=== PATIENT | female | born 1955 | race Caucasian/White ===

== ENCOUNTER → 2017-12-29 | Outpatient (CLI) | payer OTHER ==
[~2017-12-29] MED LIST: INSDGIPEN SC; NVLGI SC; SUMA6KIT
--- NOTE | 2017-12-29 13:06 | DIAGNOSTIC IMAGING REPORT ---
CHEST 2 VIEWS ROUTINE CLINICAL HISTORY: 62 years-old Female presenting with R05 [id number]. TECHNIQUE: PA and lateral views of the chest were obtained. COMPARISON: 06/16/2016. FINDINGS: Atherosclerosis of the aortic arch. Cardiac silhouette normal in size. Lungs and pleural spaces clear. Degenerative changes of the thoracic spine. Partially visualized anterior cervical fusion hardware. Upper abdomen normal. IMPRESSION: 1. No acute cardiopulmonary disease. Electronically signed by: Dg Allen M.D. 12/29/2017 1:05 PM Dictated Date/Time: 12/29/2017 1:03 PM
== END | disposition home or self-care (01) ==
LOC: C.RAD 12:34
PROVIDERS: ATTEND Physician Assistant Medical
DX: R05 Cough (principal)

== ENCOUNTER → 2017-12-29 | Outpatient (CLI) | payer OTHER ==
[2017-12-29 16:27] LABS: BASO % 0.3 %; BASO ABS # 0.03 K/uL (0-0.2); HEMATOCRIT 37.4 % (37-47); HEMOGLOBIN 12.5 g/dL (12.0-16.0); IG# 0.02 K/uL (0.00-0.02); LYMPH % 31.1 %; LYMPH ABS # 2.97 K/uL (1.2-3.4); MEAN CELL VOLUME 95.9 fL (80-100); MEAN CORPUSCULAR HEMOGLOBIN 32.1 pg (25-34); MEAN CORPUSCULAR HGB CONC 33.4 g/dl (32-36); MEAN PLATELET VOLUME 10.2 fL (7.4-10.4); MONO % 6.7 %; MONO ABS # 0.64 K/uL (0.11-0.59); NEUT % 60.7 %; PLATELET COUNT 258 K/uL (130-400); RED CELL DISTRIBUTION WIDTH CV 13.2 % (11.5-14.5); RED CELL DISTRIBUTION WIDTH SD 45.7 fL (36.4-46.3); WHITE BLOOD COUNT 9.56 K/uL (4.8-10.8)
[2017-12-29 16:37] LABS: ALBUMIN 3.4 gm/dl (3.4-5.0); ALT/SGPT 38 U/L (12-78); AST/SGOT 28 U/L (15-37); BLOOD UREA NITROGEN 21 mg/dl (7-18); CARBON DIOXIDE 28 mmol/L (21-32); CREATININE 1.13 mg/dl (0.60-1.20); GLUCOSE 224 mg/dl (70-99); POTASSIUM 4.1 mmol/L (3.5-5.1); SODIUM 135 mmol/L (136-145)
[2017-12-29 16:48] LABS: ALKALINE PHOSPHATASE 119 U/L (45-117); TOTAL PROTEIN 7.5 gm/dl (6.4-8.2)
[2017-12-30 06:47] LABS: HEMOGLOBIN A1C 9.8 % (4.5-5.6)
== END | disposition home or self-care (01) ==
LOC: C.LABBFT 11:54
PROVIDERS: ATTEND Physician Assistant Medical
DX: E11.8 Type 2 diabetes mellitus with unspecified complications (principal); R05 Cough

== ENCOUNTER 2019-04-08 11:47 | Inpatient (IN) ==
[2019-04-08] MEDS ORDERED: ACETAMINOPHEN 500 MG TAB PO STA (12:19)
[2019-04-08] MEDS ORDERED: VANCOMYCIN CONSULT ACTIVE PRN ×2 (12:19→16:50)
[2019-04-08] MEDS ORDERED: metroNIDAZOLE 500 MG/100 ML BAG IV STA (12:19)
[2019-04-08] MEDS ORDERED: CIPROFLOXACIN 400 MG/200 ML BAG IV STA (12:19)
[2019-04-08] MEDS ORDERED: VANCOMYCIN HCL 2,750 MG in SODIUM CHLORIDE 0.9% 500 ML IV ONE (12:19)
[2019-04-08] MEDS ORDERED: SODIUM CHLORIDE 0.9% 1000ML 1,000 ML IV SCH (12:30)
[2019-04-08 12:46] LABS: Basophils # (auto) 0.02 K/uL (0-0.2); Basophils % (auto) 0.2 %; Eosinophils # (auto) 0.02 K/uL (0-0.5); Eosinophils % (auto) 0.2 %; Hematocrit (blood only) 36.3 % (37-47); Hemoglobin 12.4 g/dL (12.0-16.0); Immature Granulocytes # (auto) 0.02 K/uL (0.00-0.02); Immature Granulocytes % (auto) 0.2 %; Lymphocytes # (auto) 1.47 K/uL (1.2-3.4); Lymphocytes % (auto) 11.9 %; Mean Corpuscular Hgb Conc 34.2 g/dL (32-36); Mean Platelet Volume 10.1 fL (7.4-10.4); Monocytes # (auto) 0.58 K/uL (0.11-0.59); Monocytes % (auto) 4.7 %; Neutrophils # (auto) 10.23 K/uL (1.4-6.5); Neutrophils % (auto) 82.8 %; Platelet Count 267 K/uL (130-400); RDW Standard Deviation 45.2 fL (36.4-46.3); Red Blood Count 3.82 M/uL (4.2-5.4); White Blood Count 12.34 K/uL (4.8-10.8)
[2019-04-08 12:56] LABS: INR 1.2 (0.9-1.1); Partial Thromboplastin Ratio 0.9; Partial Thromboplastin Time 25.4 Seconds (21.0-31.0); Prothrombin Time 11.8 Seconds (9.0-12.0)
[2019-04-08 12:57] LABS: Albumin Level 3.3 gm/dl (3.4-5.0); BUN Creatinine Ratio 15.9 (10-20); Creatinine Clr Calc Pharmacy 59.7 ml/min; Est GFR (African American) 56.2; Est GFR (Non-African American) 48.5; Potassium 3.8 mmol/L (3.5-5.1)
[2019-04-08 13:00] LABS: Albumin Globulin Ratio 0.7 (0.9-2); Bilirubin,Total 0.5 mg/dl (0.2-1); Total Protein 8.3 gm/dl (6.4-8.2)
[2019-04-08 13:18] LABS: Appearance Urine Clear (Clear); Bilirubin Urine Negative (Negative); Blood Urine Negative (Negative); Color Urine Yellow; Glucose Urine UA 3+ (Negative); Ketones Urine Negative (Negative); Leukocyte Esterase Urine Negative (Negative); Nitrite Urine Negative (Negative); Protein Urine Negative (Negative); Specific Gravity Urine 1.024 (1.000-1.030); Urobilinogen Urine Negative (Negative)
--- NOTE | 2019-04-08 13:29 | XRay Report ---
RIGHT FOOT 2 VIEWS CLINICAL HISTORY: Right foot swelling and ulceration. FINDINGS: AP and lateral views of the right foot are obtained. No prior studies are available for [facility] at the time of dictation. The skeletal structures are osteopenic. No acute fracture is seen. Soft tissue swelling is present in the forefoot, greatest involving the first toe. Small foci of subc utaneous gas are observed. Question bony irregularity and erosion along the medial aspect of the tuf t of the first distal phalanx. Advanced erosive arthritic change is seen at the first metatarsophalan geal joint. Moderate arthritic change with erosion is seen at the second metatarsophalangeal joint. A rthritic change is seen at the tarsometatarsal joints. There are large dorsal and plantar calcaneal e nthesophytes. Degenerative spurring is seen along the dorsal aspect of the tarsal bones. IMPRESSION: 1. Diffuse soft tissue edema is present in the foot, greatest in the first toe. There are foci of sub cutaneous gas suggest infection. 2. Question bony irregularity and erosion involving the medial aspect of the tuft of the first distal phalanx. Osteomyelitis is suspected and clinical correlation will be required. 3. Advanced degenerative change with erosion is seen at the first metatarsophalangeal joint. Mild to moderate arthritic change is seen throughout the remainder of the foot as detailed above. Electronically signed by: Too Wagner M.D. 04/08/2019 1:28 PM
--- NOTE | 2019-04-08 13:31 | XRay Report ---
XR chest 1V portable CLINICAL HISTORY: 64 years-old Female presenting with Sepsis. TECHNIQUE: Portable upright AP view of the chest was obtained. COMPARISON: 12/29/2017. FINDINGS: Atherosclerosis of the aortic arch. Cardiac silhouette top normal in size. Elevation of the right hem idiaphragm. Bandlike opacities at the right lung base. Mild pulmonary vascular prominence. No other f ocal opacity. No large effusion or pneumothorax. Degenerative changes of the thoracic spine. Calcific ation in the region of the left rotator cuff likely calcific tendinitis. Partially visualized anterio r cervical fusion hardware. Upper abdomen normal. IMPRESSION: 1. New right basilar atelectasis suspected. 2. Mild volume overload. No convincing evidence of a focal infiltrate to suggest pneumonia or edema. Electronically signed by: Dg Allen M.D. 04/08/2019 1:30 PM
[2019-04-08] MEDS ORDERED: SODIUM CHLORIDE 0.9% 1000ML 1,000 ML IV ONE (13:56)
--- NOTE | 2019-04-08 14:45 | Emergency Department Note ---
Entered by Concha Rodriguez acting as a scribe for Hi Mejia MD History of Present Illness General Chief complaint: Fever Stated complaint: WEAK, FEVER, CHILLS, TOE PAIN Time Seen by Provider: 04/08/19 12:00 Source: patient Mode of arrival: ambulatory Limitations: no limitations History of Present Illness Onset (ago): day(s) 4 Location: head (global), upper extremity (global), foot (right great toe) and lower extremity (global) Pain Consistency: + constant Maximum Pain Intensity: 5 Quality: + other (fever) Associated symptoms: + cough, + fever/chills, + nausea/vomiting (The patient complains of nausea. The patient denies vomiting. ), + weakness and + other (The patient complains of toe pain. The patient denies urinary symptoms and abdominal pain.) The patient is a 64 year old female with a history of diabetes, hypertension, GERD, dyslipidemia, hysterectomy, and kidney stones who presents to the ED with complaints of constant fever that onset 4 days ago. The patient states that she has a history of an ingrown toenail. She notes that she stepped on a seashell while on a vacation in [place] 3 weeks ago. The patient reports that her toe was healing until she gardened without shoes on. She states that she got dirt into her toe. The patient complains of weakness, chills, nausea, cough, and toe pain. The patient denies vomiting, urinary symptoms, and abdominal pain. She denies tobacco use and endorses occasional alcohol use. Home Medications Home Medications Medication Instructions Recorded Confirmed Type cholecalciferol (vitamin D3) 2,000 2,000 unit PO .Take 1 tablet daily 03/15/19 04/08/19 History unit tablet tab losartan 100 1 tab PO .TAKE ONE TABLET BY M #90 03/15/19 04/08/19 History mg-hydrochlorothiazide 25 mg tablet tab omeprazole 20 mg capsule,delayed 20 mg PO .TAKE 1 CAPSULE Daily #90 03/15/19 04/08/19 History release cap insulin aspart U-100 [Novolog 0 sliding scale dose SUBCUT 04/08/19 04/08/19 History U-100 Insulin aspart] USEASDIRECTD insulin glargine [Lantus U-100 50 unit SUBCUT QPM 04/08/19 04/08/19 History Insulin] sumatriptan succinate 25 mg PO UD 04/08/19 04/08/19 History Allergies Allergy/AdvReac Type Severity Reaction Status Date / Time No Known Drug Allergies Allergy Unknown NKDA Verified 04/08/19 12:58 Past Med/Surg History Medical History Ingrown nail of great toe of right foot Sepsis (Acute) Hyperglycemia (Acute) Vitamin D deficiency (Acute) Skin benign neoplasm (Acute) PPD positive (Acute) Obesity (Acute) Migraine headache (Acute) Insulin long-term use (Acute) Hypertension (Acute) Gastroesophageal reflux disease (Acute) Dyslipidemia (Acute) Diabetic retinopathy, nonproliferative (Acute) 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 and A total of 10 systems reviewed and were otherwise negative Physical Exam Vital Signs Vital Signs - 24 hr 04/08/19 11:53 04/08/19 12:19 04/08/19 14:00 Temperature 38.1 C H Temperature Source Oral Sepsis Recent Fever Within 48 Hours Yes Sepsis New/Unexplained Change in Mental Status No Sepsis Action Taken by Nursing No Action Required Pulse Rate 97 H Pulse Rate [Right Finger] 79 Respiratory Rate 22 18 Respiratory Effort / Characteristics Non-Labored Spontaneous Respiratory Depth Normal Respiratory Pattern Regular Blood Pressure 165/69 H Blood Pressure [Left Arm] 150/54 H Blood Pressure Mean 101 Blood Pressure Mean [Left Arm] 86 Blood Pressure Position Sitting Pulse Oximetry 96 93 Oxygen Delivery Method Room Air Room Air Room Air GENERAL: Well appearing, well nourished, NAD, non-toxic. EYE EXAM: Normal conjunctiva. PERRL, no anisocoria and EOM's grossly intact w/o pain. OROPHARYNX: Moist mucus membranes. Grossly normal dentition. NECK: Supple, no nuchal rigidity, no adenopathy, non-tender. no signs of meningismus. LUNGS: Clear to auscultation. Normal chest wall mechanics. HEART: NSR, no MRG. ABDOMEN: Abdomen soft, non-tender, normo-active bowel sounds, no masses, no rebound or guarding. BACK: No CVA TTP. SKIN: No rashes and no bruising. UPPER EXTREMITIES: Upper extremities are grossly normal. LOWER EXTREMITIES: Erythema to the right great toe. cm ulceration to the planter aspect of R great toe. Mild fluctuance. No active drainage. No tenderness to palpation. No crepitus. NEURO EXAM: A&O x3, cranial nerves II-XII grossly intact, normal speech, moves all 4 extremities on command w/o issue. Course 1215: Past medical records reviewed. The patient was evaluated in room C08. A complete history and physical examination was performed. 4375: I [facility] the patient[facility]. She will evaluate the patient for further management. Consultations Consultation #1: [id number]: I reviewed the patient's case [facility]. She will evaluate the patient for further management. Time: 13:55 Administered Medications Vancomycin HCl 2,750 mg/ (Sodium Chloride) 555 mls @ 200 mls/hr IV NOW ONE; Protocol Stop: 04/08/19 15:05 Last Admin: 04/08/19 13:34 Dose: 200 mls/hr Documented by: [id number] Sodium Chloride (Nss 1000ml) 1,000 mls @ 999 mls/hr IV .Q1H1M ONE Stop: 04/08/19 14:56 Last Admin: 04/08/19 14:36 Dose: 999 mls/hr Documented by: [id number] Discontinued Medications Acetaminophen (Tylenol) 1,000 mg PO NOW STA Stop: 04/08/19 12:20 Last Admin: 04/08/19 12:54 Dose: 1,000 mg Documented by: [id number] Ciprofloxacin (Cipro) 400 mg in 200 mls @ 200 mls/hr IV NOW STA Stop: 04/08/19 13:18 Last Admin: 04/08/19 13:34 Dose: 200 mls/hr Documented by: [id number] Metronidazole (Flagyl) 500 mg in 100 mls @ 100 mls/hr IV NOW STA Stop: 04/08/19 13:18 Last Infusion: 04/08/19 14:35 Dose: 0 mls/hr Documented by: [id number] Admin: 06/10/19 13:34 Dose: 100 mls/hr Documented by: [id number] Sodium Chloride (Nss 1000ml) 1,000 mls @ 999 mls/hr IV .Q1H1M BETH Stop: 04/08/19 13:30 Last Infusion: 04/08/19 14:35 Dose: 0 mls/hr Documented by: [id number] Admin: 04/08/19 13:15 Dose: 999 mls/hr Documented by: [id number] Medical Decision Making Differential Diagnosis Differential diagnoses: Viral syndrome, otitis, pharyngitis, pneumonia, influenza, meningitis, urinary tract infection, sepsis, bacteremia, as well as others were entertained. Medical Records Attestation: I reviewed the patient's medical records. Home Medications Current Medication List: was personally reviewed by me Laboratory Data Attestation: I reviewed the patient's lab results. Result diagrams: 04/08/19 12:25 04/08/19 12:25 Lab Results 04/08/19 04/08/19 04/08/19 Range/Units 12:25 12:25 12:25 WBC 12.34 H (4.8-10.8) K/uL RBC 3.82 L (4.2-5.4) M/uL Hgb 12.4 (12.0-16.0) g/dL Hct 36.3 L (37-47) % MCV 95.0 (80-100) fL MCH 32.5 (25-34) pg MCHC 34.2 (32-36) g/dL RDW Std Deviation 45.2 (36.4-46.3) fL RDW Coeff of Pauline 13.0 (11.5-14.5) % Plt Count 267 (130-400) K/uL MPV 10.1 (7.4-10.4) fL Immature Gran % (Auto) 0.2 % Neut % (Auto) 82.8 % Lymph % (Auto) 11.9 % Ponce % (Auto) 4.7 % Eos % (Auto) 0.2 % Baso % (Auto) 0.2 % Immature Gran # (Auto) 0.02 (0.00-0.02) K/uL Neut # (Auto) 10.23 H (1.4-6.5) K/uL Lymph # (Auto) 1.47 (1.2-3.4) K/uL Ponce # (Auto) 0.58 (0.11-0.59) K/uL Eos # (Auto) 0.02 (0-0.5) K/uL Baso # (Auto) 0.02 (0-0.2) K/uL PT 11.8 (9.0-12.0) Seconds INR 1.2 H (0.9-1.1) APTT 25.4 (21.0-31.0) Seconds PTT Ratio 0.9 Sodium 134 L (136-145) mmol/L Potassium 3.8 (3.5-5.1) mmol/L Chloride 98 (98-107) mmol/L Carbon Dioxide 28 (21-32) mmol/L Anion Gap 8.0 (3-11) BUN 19 H (7-18) mg/dl Creatinine 1.17 (0.6-1.2) mg/dl Est Cr Clr Drug Dosing 59.7 ml/min Est GFR ( Amer) 56.2 Est GFR (Non-Af Amer) 48.5 BUN/Creatinine Ratio 15.9 (10-20) Glucose 249 H (70-99) mg/dl POC Lactic Acid Lázaro (0.90-1.70) mmol/L Calcium 9.0 (8.5-10.1) mg/dl Total Bilirubin 0.5 (0.2-1) mg/dl AST 21 (15-37) U/L ALT 37 (12-78) U/L Alkaline Phosphatase 164 H (45-117) U/L Total Protein 8.3 H (6.4-8.2) gm/dl Albumin 3.3 L (3.4-5.0) gm/dl Globulin 5.0 H (2.5-4.0) gm/dl Albumin/Globulin Ratio 0.7 L (0.9-2) Procalcitonin (0-0.5) ng/ml Urine Color Urine Appearance (Clear) Urine pH (4.5-7.5) Ur Specific Everett (1.000-1.030) Urine Protein (Negative) Urine Glucose (UA) (Negative) Urine Ketones (Negative) Urine Blood (Negative) Urine Nitrite (Negative) Urine Bilirubin (Negative) Urine Urobilinogen (Negative) Ur Leukocyte Esterase (Negative) 06/08/1704/08/19 04/08/19 Range/Units 12:25 12:30 12:35 WBC (4.8-10.8) K/uL RBC (4.2-5.4) M/uL Hgb (12.0-16.0) g/dL Hct (37-47) % MCV (80-100) fL MCH (25-34) pg MCHC (32-36) g/dL RDW Std Deviation (36.4-46.3) fL RDW Coeff of Pauline (11.5-14.5) % Plt Count (130-400) K/uL MPV (7.4-10.4) fL Immature Gran % (Auto) % Neut % (Auto) % Lymph % (Auto) % Ponce % (Auto) % Eos % (Auto) % Baso % (Auto) % Immature Gran # (Auto) (0.00-0.02) K/uL Neut # (Auto) (1.4-6.5) K/uL Lymph # (Auto) (1.2-3.4) K/uL Ponce # (Auto) (0.11-0.59) K/uL Eos # (Auto) (0-0.5) K/uL Baso # (Auto) (0-0.2) K/uL PT (9.0-12.0) Seconds INR (0.9-1.1) APTT (21.0-31.0) Seconds PTT Ratio Sodium (136-145) mmol/L Potassium (3.5-5.1) mmol/L Chloride (98-107) mmol/L Carbon Dioxide (21-32) mmol/L Anion Gap (3-11) BUN (7-18) mg/dl Creatinine (0.6-1.2) mg/dl Est Cr Clr Drug Dosing ml/min Est GFR ( Amer) Est GFR (Non-Af Amer) BUN/Creatinine Ratio (10-20) Glucose (70-99) mg/dl POC Lactic Acid Lázaro 2.29 H (0.90-1.70) mmol/L Calcium (8.5-10.1) mg/dl Total Bilirubin (0.2-1) mg/dl AST (15-37) U/L ALT (12-78) U/L Alkaline Phosphatase (45-117) U/L Total Protein (6.4-8.2) gm/dl Albumin (3.4-5.0) gm/dl Globulin (2.5-4.0) gm/dl Albumin/Globulin Ratio (0.9-2) Procalcitonin 0.11 (0-0.5) ng/ml Urine Color Yellow Urine Appearance Clear (Clear) Urine pH 7.0 (4.5-7.5) Ur Specific Everett 1.024 (1.000-1.030) Urine Protein Negative (Negative) Urine Glucose (UA) 3+ H (Negative) Urine Ketones Negative (Negative) Urine Blood Negative (Negative) Urine Nitrite Negative (Negative) Urine Bilirubin Negative (Negative) Urine Urobilinogen Negative (Negative) Ur Leukocyte Esterase Negative (Negative) Imaging Data Radiologist's Impression: Radiology results as stated below per my review and the radiologist's interpretation: RIGHT FOOT 2 VIEWS CLINICAL HISTORY: Right foot swelling and ulceration. FINDINGS: AP and lateral views of the right foot are obtained. No prior studies are available for comparison at the time of dictation. The skeletal structures are osteopenic. No acute fracture is seen. Soft tissue swelling is present in the forefoot, greatest involving the first toe. Small foci of subcutaneous gas are observed. Question bony irregularity and erosion along the medial aspect of the tuft of the first distal phalanx. Advanced erosive arthritic change is seen at the first metatarsophalangeal joint. Moderate arthritic change with erosion is seen at the second metatarsophalangeal joint. Arthritic change is seen at the tarsometatarsal joints. There are large dorsal and plantar calcaneal enthesophytes. Degenerative spurring is seen along the dorsal aspect of the tarsal bones. IMPRESSION: 1. Diffuse soft tissue edema is present in the foot, greatest in the first toe. There are foci of subcutaneous gas suggest infection. 2. Question bony irregularity and erosion involving the medial aspect of the tuft of the first distal phalanx. Osteomyelitis is suspected and clinical correlation will be required. 3. Advanced degenerative change with erosion is seen at the first metatarsophalangeal joint. Mild to moderate arthritic change is seen throughout the remainder of the foot as detailed above. Electronically signed by: Too Wagner M.D. 04/08/2019 1:28 PM Dictated: 04/08/19 1323 Transcribed: 04/08/19 1323 XR chest 1V portable CLINICAL HISTORY: 64 years-old Female presenting with Sepsis. TECHNIQUE: Portable upright AP view of the chest was obtained. COMPARISON: 12/29/2017. FINDINGS: Atherosclerosis of the aortic arch. Cardiac silhouette top normal in size. E levation of the right hemidiaphragm. Bandlike opacities at the right lung base. Mild pulmonary vascular prominence. No other focal opacity. No large effusion or pneumothorax. Degenerative changes of the thoracic spine. Calcification in the region of the left rotator cuff likely calcific tendinitis. Partially visualized anterior cervical fusion hardware. Upper abdomen normal. IMPRESSION: 1. New right basilar atelectasis suspected. 2. Mild volume overload. No convincing evidence of a focal infiltrate to suggest pneumonia or edema. Electronically signed by: Dg Allen M.D. 04/08/2019 1:30 PM Dictated: 04/08/19 1327 Transcribed: 04/08/19 1327 Blood Pressure Blood Pressure Findings: Elevated blood pressure Blood Pressure Disposition: further management by hospitalist MDM Narrative The patient is a 64 year old female with a history of diabetes, hypertension, GERD, dyslipidemia, hysterectomy, and kidney stones who presents to the ED with complaints of constant fever that onset 4 days ago. Patient was seen and evaluated the bedside. The patient was concerned about associated fever as well as some right great toe swelling. She has had some issues with ingrown toenails in the past. Patient states that while in [place] she did have a cut on her right great toe on a seashell. This was deemed a salt water injury. Patient states that she was down the garden recently and that she did not were covered shoes. Patient does have an erythematous right great toe with associated mild swelling. No pain. Patient does have a small ulceration to the plantar aspect of the right great toe. Patient did have some mild fluctuance. The plain film did read some possible subcu gas but there is no crepitus. Nec fasc to be less likely. Patient had blood work blood and urine cultures urinalysis chest x-ray empiric antibiotics and IV fluids. Patient did have a mild white count. The patient does have an elevated blood glucose. The patient does have possible osteo-and infection of that right great toe. I did inform the patient of the findings. I did speak the on-call hospitalist agreed to further evaluate treat the patient. Patient was admitted to the medicine service. Impression & Plan Sepsis, Osteomyelitis of great toe of right foot, Hyperglycemia Critical Care Time Critical Care Time: Yes (35) Total Critical Care Time: 35 I have personally spent 35 minutes of critical care time in the direct management of this patient. This includes bedside care, interpretation of diagnostic studies, and testing, discussion with consultants, patient, and family members, and other required patient management activities. This 35 minutes is in excess of all separately billable procedures. Discharge Plan Visit Data Chief Complaint: Fever Stated Complaint: WEAK, FEVER, CHILLS, TOE PAIN ED Provider: Hi Mejia Discharge Problem: Sepsis, Osteomyelitis of great toe of right foot, Hyperglycemia Patient Disposition: Being Evaluated by Hospitalist Forms Stand Alone Forms: My [facility] Prescriptions Prescriptions: No Action cholecalciferol (vitamin D3) 2,000 unit tablet 2,000 unit PO .Take 1 tablet daily RF: 0 losartan-hydrochlorothiazide 100-25 mg tablet 1 tab PO .TAKE ONE TABLET BY M Qty: 90 RF: 0 omeprazole 20 mg capsule,delayed release(DR/EC) 20 mg PO .TAKE 1 CAPSULE Daily Qty: 90 RF: 0 Lantus U-100 Insulin 100 unit/mL Solution 50 unit SUBCUT QPM RF: 0 sumatriptan succinate 25 mg Tablet 25 mg PO UD RF: 0 Novolog U-100 Insulin aspart 100 unit/mL Solution SUBCUT USEASDIRECTD RF: 0 Referrals Referrals: Bong Bess MD [Primary Care Provider] - Discharge Problem: Sepsis Qualifiers: Sepsis type: sepsis due to unspecified organism Qualified Code(s): A41.9 - Sepsis, unspecified organism The scribe's documentation has been prepared under my direction and personally reviewed by me in its entirety. I confirm that the note above accurately reflects all work, treatment, procedures, and medical decision making performed by me.
--- NOTE | 2019-04-08 16:17 | History & Physical Report ---
Date of Service April 08, 2019 Assessment & Plan (1) Osteomyelitis of great toe of right foot: Uncertain on XR, but with gas noted MRI pending Elevated WBC and BS Has been seen by Dr. Judge in the past, requests again laron Blum flagyl started in the ED, will continue for coverage of mollusk based infections C c/s pending Lactic acid elevated, will repeat IVF Blood and wound cx pending (2) Hypertension: continue home meds (3) Gastroesophageal reflux disease: continue home meds (4) Dyslipidemia: Denies this dx No medication use (5) Depression: Denies this dx No medication use (6) Anxiety: Denies this dx No medication use (7) Migraine headache: PRN triptan (8) DVT prophylaxis: SCDs given possible OR History of Present Illness Primary Care Provider: Grey Bess MD 64 y/o F c/o R great toe wound. Pt states that she had an ingrown toenail removal on her R great toe a few years ago and it has "always been tight and swollen since then". No infection issues though. She states that she was in [place] about 2 weeks ago and cut her R great toe on a sea shell. It has not healed and has in fact gotten much worse. She has had increased redness, swelling, and pain since that time. It does bleed occasionally but more purulent drainage than bleeding. She has not seen anyone for this and no abx use. She has no prior hx of nonhealing skin infections. Pt has had periodic fevers x4 days. She gets nauseated at times and this passes if she does not eat anything. No emesis. She states she has diarrhea at baseline and it is no different than her usual. Her BS have been elevated recently. Pt states she has a headache that feels like her usual migraine that can be triggered by not eating. She had not eaten anything yet today due to nausea. She does feel improved and would like to eat as this usually resolves her migraines. Pt denies SOB, chest pain, abd pain Allergies Allergy/AdvReac Type Severity Reaction Status Date / Time No Known Drug Allergies Allergy Unknown NKDA Verified 04/08/19 12:58 Home Medications Home Medications Medication Instructions Recorded Confirmed Type cholecalciferol (vitamin D3) 2,000 2,000 unit PO .Take 1 tablet daily 03/15/19 04/08/19 History unit tablet tab losartan 100 1 tab PO .TAKE ONE TABLET BY M #90 03/15/19 04/08/19 History mg-hydrochlorothiazide 25 mg tablet tab omeprazole 20 mg capsule,delayed 20 mg PO .TAKE 1 CAPSULE Daily #90 03/15/19 04/08/19 History release cap insulin aspart U-100 [Novolog 0 sliding scale dose SUBCUT 04/08/19 04/08/19 History U-100 Insulin aspart] USEASDIRECTD insulin glargine [Lantus U-100 50 unit SUBCUT QPM 04/08/19 04/08/19 History Insulin] sumatriptan succinate 25 mg PO UD 04/08/19 04/08/19 History Past Med/Surg History Medical History Ingrown nail of great toe of right foot Sepsis (Acute) Hyperglycemia (Acute) Vitamin D deficiency (Acute) Skin benign neoplasm (Acute) PPD positive (Acute) Obesity (Acute) Migraine headache (Acute) Insulin long-term use (Acute) Hypertension (Acute) Gastroesophageal reflux disease (Acute) Dyslipidemia (Acute) Diabetic retinopathy, nonproliferative (Acute) 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) Depression (Acute) Arthralgia of multiple sites (Acute) Anxiety (Acute) No pertinent family history Surgical History No pertinent past surgical history Family History Father CHF (congestive heart failure) Other No pertinent family history Social History Preferred Language: Chinese Communication Ability: Effective Visual Impairment: No Limitations Hearing Ability: Normal Feels Safe at Home: Yes Smoking Status: Never smoker Hx Alcohol Use: Yes (2-3 drinks on the weekends) Alcohol Intake Frequency Comment: Occasional Hx Substance Use: No Review of Systems Review of Systems: Pertinent positives and negatives reviewed in HPI--all others negative Physical Exam Constitutional: WD/WN, vitals as above Eyes: normal visual ng by confrontation and + anicteric sclerae Neck: normal visual inspection and trachea midline Respiratory: normal respiratory effort, lungs clear to auscultation Cardiovascular: Rate/Rhythm: regular rate and regular rhythm Gastrointestinal (Abdomen): Inspection/Auscultation: abdomen not distended Percussion/Palpation: abdomen soft; abdomen nontender Musculoskeletal: Head/Neck/Chest: normocephalic and head atraumatic R great toe edema, peripheral pulses intact Skin: R great toe with purulence noted on pedal aspect, no bleeding noted Red to base of toe with swelling Hot to touch Neurologic: awake; not confused Speech / Cognition: normal speech Psychiatric: A+Ox3, euthymic affect Results & Data Vital Signs (Past 12 Hours) Vital Signs Temp Pulse Pulse Resp BP BP Pulse Ox 04/08/19 15:45 93 H 18 140/57 L 97 04/08/19 15:00 84 18 147/50 H 92 04/08/19 14:00 79 18 150/54 H 93 04/08/19 11:53 38.1 C H 97 H 22 165/69 H 96 Diagnostic Findings CXR: neg for acute R foot XR: ?? osteomyelitis, gas noted Code Status & VTE Plan Code Status Full code VTE Prophylaxis Plan VTE Prophylaxis will be ordered: Yes
[2019-04-08] MEDS ORDERED: ONDANSETRON INJ 2 MG/ML 2 ML VIAL IV PRN (16:50)
[2019-04-08] MEDS ORDERED: DEXTROSE 50% 50 ML SYRINGE IV PRN (16:50)
[2019-04-08] MEDS ORDERED: MAGNESIUM HYDROXIDE SUSP 30 ML UDC PO PRN (16:50)
[2019-04-08] MEDS ORDERED: CLINDAMYCIN 600 MG in DEXTROSE 5% 50 ML IV SCH (16:50)
[2019-04-08] MEDS ORDERED: GLUCAGON FOR INJ 1 MG VIAL SQ PRN (16:50)
[2019-04-08] MEDS ORDERED: VANCOMYCIN HCL 1,000 MG in SODIUM CHLORIDE 0.9% 250 ML IV SCH (16:50)
[2019-04-08] MEDS ORDERED: CARBOHYDRATES FOR HYPOGLYCEMIA PO PRN (16:50)
[2019-04-08] MEDS ORDERED: GLUCOSE 10 TABS/TUBE PO PRN (16:50)
[2019-04-08] MEDS ORDERED: GLUCOSE 40% GEL 15 GM TUBE PO PRN (16:50)
--- NOTE | 2019-04-08 18:32 | Magnetic Resonance Report ---
MR foot RT w/o con HISTORY: Right first toe swelling. possible osteo TECHNIQUE: Multiplanar multisequence MRI of the right foot was performed without contrast. COMPARISON STUDY: Right foot 04/08/2019. FINDINGS: There is mild subcutaneous edema along the dorsum of the foot. There is also subcutaneous e viridiana within the first toe. The punctate focus of subcutaneous gas within the medial aspect of the fir st toe. No fracture or dislocation within the foot. Advanced degenerative changes at the first MTP cristina int and [id number] osteoarthritis throughout the remaining MTP, PIP, and DIP joints. Flattening at the head of the second metatarsal consistent with chronic Freiberg's infraction. There is abnorma l T1 and T2 signal within the distal phalanx of the first toe with suggestion of cortical erosion sandi ng the medial border of the cortex at the distal tuft. This is best seen on axial image 5 and coronal image 11. This corresponds to the radiographic abnormality and is therefore consistent with osteomye litis. There appears to be a small soft tissue laceration within the plantar aspect of the distal fir st toe. IMPRESSION: 1. Osteomyelitis involving the distal phalanx of the first toe as described above. 2. Punctate focus of subcutaneous gas within the medial aspect of the first toe. This could be due to a superficial laceration or a gas-forming organism. 3. Soft tissue swelling within the first toe. 4. Additional findings as described above. Electronically signed by: Nelson Galindo M.D. 04/08/2019 6:31 PM
[2019-04-08] MEDS: NSS + 20MEQ KCL 20 MEQ/1,000 ML BAG IV SCH (19:12)
[2019-04-08] MEDS: INSULIN ASPART 100 UNITS/ML 3 ML PEN SC SCH ×2 (19:18→20:43)
[2019-04-08] MEDS: ACETAMINOPHEN 325 MG TAB PO PRN (19:48)
[2019-04-08] MEDS: SUMAtriptan succinate 25 MG TAB PO PRN (20:40)
[2019-04-08] MEDS: INSULIN GLARGINE SOLOSTAR 100 UNITS/ML 3 ML PEN SQ SCH (20:50)
--- NOTE | 2019-04-08 20:59 | Pharmacy Report ---
Pharmacy Abx Initial Consult - Date of Service April 08, 2019 - Pharmacy Dosing Scope Date of Consult: 04-08 Consultation requested by: Dr. Whitaker Pharmacy is consulted to initiate vancomycin dosing therapy, order appropriate labs and adjust drug dose/frequency. - Subjective The patient is a 64 year old F admitted on 04/08/19 16:14. - Objective Height: 5 ft 6 in Weight: 110.9 kg Lab Results (24hrs): Laboratory Tests (24 Hours) 04/08/19 04/08/19 04/08/19 12:25 12:25 12:25 WBC 12.34 H Neut # (Auto) 10.23 H Creatinine 1.17 Est Cr Clr Drug Dosing 59.7 Procalcitonin 0.11 Micro Results: 04/08/19 12:55 Aerobic Blood Culture - Pending Blood Anaerobic Blood Culture - Pending 04/08/19 12:15 Gram Stain - Pending Toe,Right Great Wound Culture - Pending 04/08/19 12:25 Aerobic Blood Culture - Pending Blood Anaerobic Blood Culture - Pending - Assessment & Plan Assessment Patient admitted with concern for osteomyelitis of great toe of right foot. Started on vancomycin - Blood cultures, toe cultures are pending. Plan Vancomycin IV * Patient received vancomycin 2750 mg iv x 1 in the ED (~25 mg/kg) * Will start vancomycin 1250 mg (~11 mg/kg) iv q 14 hrs to achieve an estimated trough ~15-20 mcg/ml (goal for osteomyelitis) * Estimated kinetics: t1/2~13 hrs, ke~0.05 hr-1, CrCl ~60 ml/min * Will plan to obtain a trough prior to the 0800 dose on 04/10 to ensure therapeutic / or sooner if renal function changes - note, patient with elevate d BMI >35 kg/m2 therefore increased risk of accumulated with vancomycin possible. Pharmacy will continue to follow and will adjust dose/frequency as necessary. Thank you.
[2019-04-08] MEDS: metroNIDAZOLE 500 MG/100 ML BAG IV SCH (21:45)
[2019-04-09] MEDS: ACETAMINOPHEN 325 MG TAB PO PRN ×3 (01:54→21:06)
[2019-04-09] MEDS: CIPROFLOXACIN 400 MG/200 ML BAG IV SCH ×2 (01:55→14:30)
[2019-04-09] MEDS: VANCOMYCIN HCL 1,250 MG in SODIUM CHLORIDE 0.9% 250 ML IV SCH ×2 (04:01→17:23)
[2019-04-09] MEDS: NSS + 20MEQ KCL 20 MEQ/1,000 ML BAG IV SCH ×2 (06:18→16:46)
[2019-04-09] MEDS: metroNIDAZOLE 500 MG/100 ML BAG IV SCH ×3 (06:20→21:06)
[2019-04-09 07:05] LABS: Basophils # (auto) 0.02 K/uL (0-0.2); Basophils % (auto) 0.2 %; Eosinophils # (auto) 0.05 K/uL (0-0.5); Eosinophils % (auto) 0.5 %; Hematocrit (blood only) 30.7 % (37-47); Hemoglobin 10.2 g/dL (12.0-16.0); Immature Granulocytes # (auto) 0.02 K/uL (0.00-0.02); Immature Granulocytes % (auto) 0.2 %; Lymphocytes % (auto) 20.4 %; Mean Corpuscular Hgb Conc 33.2 g/dL (32-36); Mean Corpuscular Volume 94.5 fL (80-100); Mean Platelet Volume 9.6 fL (7.4-10.4); Monocytes # (auto) 0.92 K/uL (0.11-0.59); Monocytes % (auto) 9.9 %; Neutrophils # (auto) 6.39 K/uL (1.4-6.5); Neutrophils % (auto) 68.8 %; Platelet Count 220 K/uL (130-400); RDW Standard Deviation 45.2 fL (36.4-46.3); Red Blood Count 3.25 M/uL (4.2-5.4)
[2019-04-09 07:35] LABS: Estimated Average Glucose 240 mg/dl
[2019-04-09 07:36] LABS: C Reactive Protein 10.5 mg/dl (0-0.29); Creatinine Clr Calc Pharmacy 74.3 ml/min; Est GFR (African American) 73.3; Est GFR (Non-African American) 63.2
[2019-04-09] MEDS: PANTOprazole 40 MG TAB PO SCH (09:02)
[2019-04-09] MEDS: CHOLECALCIFEROL 1,000 UNITS TAB PO SCH (09:02)
[2019-04-09] MEDS: INSULIN ASPART 100 UNITS/ML 3 ML PEN SC SCH ×4 (09:04→21:08)
[2019-04-09] MEDS: LOSARTAN/HCTZ 50/12.5MG TAB PO SCH (09:15)
--- NOTE | 2019-04-09 18:52 | Hospitalist Progress Note ---
Date of Service April 09, 2019 Assessment & Plan (1) Osteomyelitis of great toe of right foot: Cut toe on a seashell in [place] three weeks ago and also spent time gardening barefoot since then. MRI showing 1.Osteomyelitis involving the distal phalanx of the first toe as described above. 2. Punctate focus of subcutaneous gas within the medial aspect of the first toe. This could be due to a superficial laceration or a gas-forming organism. 3. Soft tissue swelling within the first toe. Elevated WBC and BS on admission Consulted ortho - to OR tomorrow laron Blum flagyl started in the ED, will continue for coverage of mollusk based infections WCC c/s pending Lactic acid elevated, normal on repeat continue IVF Blood and wound cx pending Patient has some mild overload on chest xray but on exam lungs sound clear, patient denies any sob or chest pain. She does not have any cardiac history. She has good exercise tolerance, able to walk multiple flights of stairs. She is diabetic with an A1c of 10%. Her RCRI is 6% (2) Hypertension: continue losartan (3) Gastroesophageal reflux disease: continue ppi (4) Depression: Denies this dx No medication use (5) Migraine headache: PRN triptan (6) DVT prophylaxis: SCDs given possible OR Subjective Ms. Rucker is feeling tired but otherwise has no complaints. Her pain is tolerable. Review of Systems Review of Systems: All systems reviewed & are unremarkable except as noted in HPI & below Physical Exam Physical Exam: General: no distress Eyes: normal inspection, PERLL Respiratory: chest non tender, clear to auscultation, normal breath sounds, no respiratory distress, no accessory muscle use Cardiac: regular rate and rhythm, no rub or gallop, no murmur, no edema, no jvd GI/: active bowel sounds, no abd pain or tenderness, soft, non distended Extremities: normal range of motion, normal strength, non tender Neuro/Psych: alert and oriented x 3, normal mood and affect Skin: normal color, dry, right great toe wound with foul smelling serous drainage Results & Data Vital Signs (Past 12 Hours) Vital Signs Temp Pulse Resp BP Pulse Ox 04/09/19 16:29 37.3 C 98 H 18 138/68 93 04/09/19 13:55 37.6 C H 04/09/19 11:48 38.0 C H 04/09/19 07:27 37.1 C 84 20 137/60 94
[2019-04-09] MEDS: INSULIN GLARGINE SOLOSTAR 100 UNITS/ML 3 ML PEN SQ SCH (21:07)
[2019-04-10] MEDS ORDERED: Nursing to Pharmacy Communication ONE (01:11)
[2019-04-10] MEDS: CIPROFLOXACIN 400 MG/200 ML BAG IV SCH ×2 (01:38→14:10)
[2019-04-10] MEDS: metroNIDAZOLE 500 MG/100 ML BAG IV SCH ×2 (05:32→13:06)
[2019-04-10] MEDS: INSULIN ASPART 100 UNITS/ML 3 ML PEN SC SCH ×4 (05:51→21:04)
[2019-04-10] MEDS ORDERED: VANCOMYCIN TROUGH ONE (07:30)
[2019-04-10] MEDS: NSS + 20MEQ KCL 20 MEQ/1,000 ML BAG IV SCH ×2 (07:41→23:20)
[2019-04-10] MEDS: LOSARTAN/HCTZ 50/12.5MG TAB PO SCH (07:41)
[2019-04-10] MEDS: CHOLECALCIFEROL 1,000 UNITS TAB PO SCH (07:42)
[2019-04-10] MEDS: PANTOprazole 40 MG TAB PO SCH (07:42)
[2019-04-10] MEDS: VANCOMYCIN HCL 1,250 MG in SODIUM CHLORIDE 0.9% 250 ML IV SCH (08:02)
--- NOTE | 2019-04-10 08:13 | Anesthesiology Consultation ---
Date of Service April 10, 2019 Assessment & Plan (1) Encounter for pre-operative examination: Chart Review Chart Review: Acceptable Risk for Surgery and Patient NOT seen in Pre Admission Testing Consults Requested none Additional Notes Order for an EKG placed. EKG and anesthetic management to be reviewed by the operative anesthesiologist. History Surgery Operation Date: 04/10/19 14:35 Proposed Procedures p Right Great Toe Amputation - Keanu Judge MD Height/Weight Height: 5 ft 6 in Weight: 110.9 kg Allergies Allergy/AdvReac Type Severity Reaction Status Date / Time No Known Drug Allergies Allergy Unknown NKDA Verified 04/08/19 12:58 Medications Home Medications Medication Instructions Recorded Confirmed Last Taken cholecalciferol (vitamin D3) 2,000 2,000 unit PO .Take 1 tablet daily 03/15/19 04/08/19 04/08/19 unit tablet tab losartan 100 1 tab PO .TAKE ONE TABLET BY M #90 03/15/19 04/08/19 04/08/19 mg-hydrochlorothiazide 25 mg tablet tab omeprazole 20 mg capsule,delayed 20 mg PO .TAKE 1 CAPSULE Daily #90 03/15/19 04/08/19 04/08/19 release cap insulin aspart U-100 [Novolog 0 sliding scale dose SUBCUT 04/08/19 04/08/19 04/08/19 U-100 Insulin aspart] USEASDIRECTD insulin glargine [Lantus U-100 50 unit SUBCUT QPM 04/08/19 04/08/19 04/08/19 Insulin] sumatriptan succinate 25 mg PO UD 04/08/19 04/08/19 Unknown Active Medications Generic Name Dose Route Start Last Admin Trade Name Walterq PRN Reason Stop Dose Admin Acetaminophen 650 mg 04/08/19 16:50 04/09/19 21:06 Tylenol PO 05/08/19 16:49 650 mg Q4H PRN Administration pain/fever HCTZ/Losartan Potassium 2 tab 04/09/19 09:00 04/10/19 07:41 Hyzaar 50/12.5mg PO 05/09/19 08:59 2 tab QAM BETH Administration Metronidazole 500 mg in 100 mls @ 100 mls/hr 04/08/19 22:00 04/10/19 06:32 Flagyl IV 05/20/19 21:59 Infused Q8H BETH Infusion Protocol Potassium Chloride/Sodium Chloride 20 meq in 1,000 mls @ 80 mls/hr 04/08/19 17:30 04/10/19 07:41 Normal Saline W/20 Meq Kcl IV 05/08/19 17:29 80 mls/hr .[id number] BETH Administration Ciprofloxacin 400 mg in 200 mls @ 100 mls/hr 04/09/19 02:00 04/10/19 03:50 Cipro IV 05/21/19 01:59 Infused Q12H BETH Infusion Protocol Vancomycin HCl 1,250 mg/ 275 mls @ 125 mls/hr 04/09/19 04:00 04/10/19 08:02 Sodium Chloride IV 05/21/19 03:59 125 mls/hr Q14H BETH Administration Insulin Aspart 0 units 04/10/19 06:00 04/10/19 05:51 Novolog Flexpen SC 05/10/19 05:59 4 units Q6 BETH Administration Insulin Glargine 50 units 04/08/19 21:00 04/09/19 21:07 Lantus Solostar Pen SQ 05/08/19 20:59 50 units QPM BETH Administration Pantoprazole Sodium 40 mg 04/09/19 09:00 04/10/19 07:42 Protonix PO 05/09/19 08:59 40 mg DAILY BETH Administration Sumatriptan Succinate 25 mg 04/08/19 16:50 04/08/19 20:40 Imitrex PO 05/08/19 16:49 25 mg UD PRN Administration Migraine Headache Vitamin D 2,000 units 04/09/19 09:00 04/10/19 07:42 Vitamin D3 PO 05/09/19 08:59 Not Given DAILY BETH NPO Date Last Intake of Fluids: 04/09/19 Time Last Intake of Fluids: 23:59 Date Last Intake of Solids: 04/09/19 Time Last Intake of Solids: 23:59 Past Medical History Medical History Ingrown nail of great toe of right foot Sepsis (Acute) Hyperglycemia (Acute) Vitamin D deficiency (Acute) Skin benign neoplasm (Acute) PPD positive (Acute) Obesity (Acute) Migraine headache (Acute) Insulin long-term use (Acute) Hypertension (Acute) Gastroesophageal reflux disease (Acute) Dyslipidemia (Acute) Diabetic retinopathy, nonproliferative (Acute) 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) Depression (Acute) Arthralgia of multiple sites (Acute) Anxiety (Acute) No pertinent family history Past Family History Family History Father CHF (congestive heart failure) Other No pertinent family history Past Surgical History Surgical History No pertinent past surgical history Social History Smoking Status: Never smoker Do You Dip or Chew Tobacco: No Hx Alcohol Use: Yes (2-3 drinks on the weekends) Alcohol type: other alcohol intake frequency: holidays/special occasions only Hx Substance Use: No substance use type: does not use Physical Exam Vital Signs Last Vital Signs Temp 37 C 04/10/19 07:55 Pulse 81 04/10/19 07:55 Resp 17 04/10/19 07:55 BP 164/72 H 04/10/19 07:55 Pulse Ox 95 04/10/19 07:55 Testing Laboratory Results 04/09/19 06:47 04/08/19 12:15 Gram Stain - Final Toe,Right Great Wound Culture - Preliminary Staphylococcus aureus 04/08/19 12:55 Aerobic Blood Culture - Preliminary Blood No growth in Aerobic bottle after 24 hours. Anaerobic Blood Culture - Preliminary Gram positive cocci in chains 04/08/19 12:25 Aerobic Blood Culture - Preliminary Blood No growth in Aerobic bottle after 24 hours. Anaerobic Blood Culture - Preliminary No growth in Anaerobic bottle after 24 hours. Chest X-Ray Date: 04/09/19 IMPRESSION: 1. New right basilar atelectasis suspected. 2. Mild volume overload. No convincing evidence of a focal infiltrate to suggest pneumonia or edema.
--- NOTE | 2019-04-10 08:33 | Consultation Report ---
DATE OF CONSULTATION: 04/09/2019 CHIEF COMPLAINT: Right great toe osteomyelitis. HISTORY OF PRESENT ILLNESS: Bev is a 64-year-old female with history of diabetes. We were asked to see her for evaluation of her right great toe infection. She states that she was in [place] about 3 weeks ago or so and stepped on some broken sea shells, she had a cut on the plantar side of the great toe. No real treatment for this at that time. She returned home. She states she has also been gardening some and has gotten dirty some and just had increased swelling, redness, and some pain with the great toe. She came to the [facility] yesterday and she was admitted with right great toe osteomyelitis. Presently in the hospital she is receiving vancomycin, Cipro, and Flagyl. She denies any other wounds at this time, no other complaints. Her past medical history, surgical history, medications, allergies, social and family history as well, all reviewed and please refer to her admission H and P for completeness. PHYSICAL EXAMINATION: GENERAL: Today, she is alert, oriented in no acute distress. EXTREMITIES: Examination of the right great toe, she has obvious swelling of the great toe and into the forefoot some. She has open wound on the plantar side of the great toe. There has been some Betadine treatment to this, so there is some discoloration. She has some necrotic tissue around this as well. She is able to move the toe appropriately. Sensation is intact to touch. No other open wounds are seen. X-RAY FINDINGS: X-rays were reviewed of her right foot which shows advanced arthritic change at the first MTP joint as well as some arthritic change of the second MTP joint. There is some bony erosion involving the distal phalanx. MRI was reviewed as well which shows some edema in the distal phalanx as well. LABORATORY DATA: White blood cell count was 12.34 yesterday on 04/08/2019, today on 04/09/2019 it is 9.30. Her sed rate is 43. Her CRP is 10.5. She had 1 positive blood culture thus far with Gram-positive cocci. Her other one showed no growth to date. IMPRESSION: Right great toe infection, osteomyelitis. PLAN: She was seen and examined by Dr. Judge today as well. We educated on this problem, talked about treatment options for it. We do think her best option for clearing this infection and healing the wound would be amputation of the right great toe. Certainly there is a possibility of difficulty healing with that wound, but we think that would be her best chance with this infection. She is presently on antibiotics. She is going to think about amputation and consider this option overnight. We will make her n.p.o. after midnight in case she wishes to proceed with surgery tomorrow.
[2019-04-10 08:41] LABS: Creatinine Clr Calc Pharmacy 81.2 ml/min; Est GFR (African American) 81.6; Est GFR (Non-African American) 70.4
--- NOTE | 2019-04-10 09:02 | Orthopedic Progress Note ---
Date of Service April 10, 2019 Assessment & Plan (1) Osteomyelitis of great toe of right foot: She was seen and examined by Dr. Judge today. She would like to proceed with amputation of the great toe. Consent was obtained. NPO. We will plan on doing this today. Subjective 64 y/o female with right great toe osteomyelitis. No new complaints Physical Exam Physical Exam: She's alert and oriented. NAD. Did not remove dressing from right great toe. Results & Data Vital Signs (Past 12 Hours) Vital Signs Temp Pulse Pulse Resp BP Pulse Ox 04/10/19 07:55 37 C 81 17 164/72 H 95 04/09/19 23:05 37.3 C 90 16 150/81 H 97 04/09/19 22:17 37.9 C H 04/09/19 21:05 38.5 C H
--- NOTE | 2019-04-10 09:06 | History & Physical Bridge Note ---
Date of Service April 10, 2019 History & Physical Bridge Note I have examined the patient, reviewed the History & Physical and in the interval since the performance of the History & Physical I have noted the following changes of clinical significance: no changes noted
[2019-04-10 09:08] LABS: Basophils # (auto) 0.02 K/uL (0-0.2); Basophils % (auto) 0.2 %; Eosinophils # (auto) 0.06 K/uL (0-0.5); Eosinophils % (auto) 0.6 %; Hematocrit (blood only) 30.9 % (37-47); Hemoglobin 10.3 g/dL (12.0-16.0); Immature Granulocytes # (auto) 0.03 K/uL (0.00-0.02); Immature Granulocytes % (auto) 0.3 %; Lymphocytes # (auto) 1.66 K/uL (1.2-3.4); Lymphocytes % (auto) 17.3 %; Mean Corpuscular Hgb Conc 33.3 g/dL (32-36); Mean Corpuscular Volume 95.1 fL (80-100); Mean Platelet Volume 9.6 fL (7.4-10.4); Monocytes # (auto) 0.89 K/uL (0.11-0.59); Monocytes % (auto) 9.3 %; Neutrophils # (auto) 6.91 K/uL (1.4-6.5); Neutrophils % (auto) 72.3 %; Platelet Count 220 K/uL (130-400); RDW Coefficient of Variation 13.2 % (11.5-14.5); Red Blood Count 3.25 M/uL (4.2-5.4); White Blood Count 9.57 K/uL (4.8-10.8)
[2019-04-10 09:17] LABS: Calcium 8.3 mg/dl (8.5-10.1); Creatinine Clr Calc Pharmacy 79.4 ml/min; Est GFR (African American) 79.4; Est GFR (Non-African American) 68.5; Potassium 3.6 mmol/L (3.5-5.1)
--- NOTE | 2019-04-10 11:23 | Hospitalist Progress Note ---
Date of Service April 10, 2019 Assessment & Plan (1) Osteomyelitis of great toe of right foot: Cut toe on a seashell in [place] three weeks ago and also spent time gardening barefoot since then. MRI showing 1.Osteomyelitis involving the distal phalanx of the first toe as described above. 2. Punctate focus of subcutaneous gas within the medial aspect of the first toe. This could be due to a superficial laceration or a gas-forming organism. 3. Soft tissue swelling within the first toe. Elevated WBC and BS on admission Consulted ortho - to OR 04/10 for toe amputation Continue Vanco, cipro, flagyl WCC growing MSSA, BC with one vial group B beta strep likely just contaminant Lactic acid elevated, normal on repeat continue IVF (2) Hypertension: continue losartan (3) Gastroesophageal reflux disease: continue ppi (4) Depression: Denies this dx No medication use (5) Migraine headache: PRN triptan (6) DVT prophylaxis: SCDs given possible OR (7) Diabetes mellitus type 2 with complications: A1c 10% SS, insulin glargine, bsgs ac & hs Diabetes education Subjective Ms. Rucker did not get much sleep last night. She is scheduled for amputation of her toe today. She reports her pain is tolerable Review of Systems Review of Systems: All systems reviewed & are unremarkable except as noted in HPI & below Physical Exam Physical Exam: General: no distress Eyes: normal inspection, PERLL Respiratory: chest non tender, clear to auscultation, normal breath sounds, no respiratory distress, no accessory muscle use Cardiac: regular rate and rhythm, no rub or gallop, no murmur, no edema, no jvd GI/: active bowel sounds, no abd pain or tenderness, soft, non distended Extremities: normal range of motion, normal strength, non tender Neuro/Psych: alert and oriented x 3, normal mood and affect Skin: normal color, dry Results & Data Vital Signs (Past 12 Hours) Vital Signs Temp Pulse Resp BP Pulse Ox 04/10/19 07:55 37 C 81 17 164/72 H 95
[2019-04-10] MEDS: SUMAtriptan succinate 25 MG TAB PO PRN (13:55)
[2019-04-10] MEDS ORDERED: LIDOCAINE HCL 2% 2 ML VIAL/AMP(20MG/ML) INFIL ONE (15:14)
[2019-04-10] MEDS ORDERED: MIDAZOLAM HCL 1 MG/ML 2ML VIAL ONE (15:14)
[2019-04-10] MEDS ORDERED: PROPOFOL IV EMULSION 10 MG/ML 20 ML VIAL IV ONE ×2 (15:14→16:34)
[2019-04-10] MEDS ORDERED: ONDANSETRON INJ 2 MG/ML 2 ML VIAL IV PRN ×2 (15:25→18:00)
[2019-04-10] MEDS ORDERED: PHENYLEPHRINE 100MCG/ML 5ML SYR IV PRN (15:25)
[2019-04-10] MEDS ORDERED: ePHEDrine sulfate 50 MG/ML AMP IV PRN (15:25)
[2019-04-10] MEDS ORDERED: MEPERIDINE HCL 25 MG/ML CARP IV PRN (15:25)
[2019-04-10] MEDS ORDERED: fentaNYL citrate 100 MCG/2 ML VIAL IV PRN (15:25)
[2019-04-10] MEDS ORDERED: ATROPINE SULFATE 0.1 MG/ML 10ML SYR IV PRN (15:25)
[2019-04-10] MEDS ORDERED: LABETALOL HCL IV 5 MG/ML 20ML IV PRN (15:25)
[2019-04-10] MEDS ORDERED: HYDROmorphone INJ 1 MG/ML SYRINGE IV PRN (15:25)
[2019-04-10] MEDS ORDERED: SCOPOLAMINE 1.5 MG TDSY ONE (15:28)
[2019-04-10] MEDS ORDERED: SCOPOLAMINE 1.5 MG TDSY TD STA (15:32)
[2019-04-10] MEDS ORDERED: BACITRACIN INJ 50,000 UNIT VIAL ONE (16:34)
[2019-04-10] MEDS ORDERED: ONDANSETRON INJ 2 MG/ML 2 ML VIAL ONE (16:36)
[2019-04-10] MEDS ORDERED: fentaNYL citrate 100 MCG/2 ML VIAL ONE (16:39)
[2019-04-10] MEDS ORDERED: BUPIVACAINE 0.5 % 5 MG/1 ML MPF 30ML VIAL ONE (16:53)
--- NOTE | 2019-04-10 17:11 | Post Operative Brief Note ---
Immediate Post Op Note v1 Date of Surgery April 10, 2019 Pre & Post Diagnosis Operation Date: 04/10/19 14:35 Pre-Op Diagnosis: OSTEOMYELITIS - Right Great Toe Post-Op Diagnosis: OSTEOMYELITIS - Right Great Toe Procedure Operation Date: 04/10/19 14:35 Right Great Toe Amputation Surgeon Keanu Judge MD Spiritual Counselor Heather, [place] Estimated Blood Loss 10 Findings Consistent with Post-Op Diagnosis Specimens Right Great Toe Anesthesia Type General Complications none Disposition Accompanied Patient To Recovery: No Disposition: Recovery Room
--- NOTE | 2019-04-10 17:26 | Anesthesiology Progress Note ---
Date of Service April 10, 2019 Anesthesia Post Procedure Vital Signs Vital Signs: Temp Pulse Pulse Resp BP Pulse Ox 04/10/19 15:20 81 18 148/113 H 97 04/10/19 07:55 37 C 81 17 164/72 H 95 04/09/19 23:05 37.3 C 90 16 150/81 H 97 04/09/19 22:17 37.9 C H 04/09/19 21:05 38.5 C H Pain Intensity Right Toe: Pain Intensity: 3 Transfer of Care Handoff Completed per policy Notes Mental Status: alert / awake / arousable Patient Amnestic to Procedure: Yes Nausea / Vomiting: adequately controlled Pain: adequately controlled Airway Patency, RR, SpO2: stable & adequate BP & HR: stable & adequate Hydration State: stable & adequate Anesthetic Complications: no major complications apparent and Pt Satisfied with anesthetic care
[2019-04-10] MEDS ORDERED: BISACODYL 10 MG SUPP PR PRN (18:00)
[2019-04-10] MEDS ORDERED: ALUMINUM/MAGNESIUM SUSP 30 ML UDC PO PRN (18:00)
[2019-04-10] MEDS ORDERED: NALOXONE HCL 0.4 MG/1 ML VIAL/CARP IV PRN (18:00)
[2019-04-10] MEDS ORDERED: MAGNESIUM HYDROXIDE SUSP 30 ML UDC PO PRN (18:00)
[2019-04-10] MEDS ORDERED: HYDROmorphone INJ 0.5 MG/0.5 ML SYR IV PRN (18:00)
[2019-04-10] MEDS ORDERED: SODIUM CHLORIDE 0.9% 1000ML 1,000 ML IV SCH (18:00)
[2019-04-10] MEDS ORDERED: METOCLOPRAMIDE HCL INJ 5 MG/ML 2 ML VIAL IV PRN (18:00)
[2019-04-10] MEDS: CHECK SCOPOLAMINE PATCH PLACEMENT SCH (19:20)
[2019-04-10] MEDS: cefTRIAXone SODIUM 2,000 MG in DEXTROSE 5% 50 ML IV SCH (19:20)
[2019-04-10] MEDS ORDERED: VANCOMYCIN HCL 1,500 MG in SODIUM CHLORIDE 0.9% 500 ML IV SCH (20:00)
[2019-04-10] MEDS: OXYCODONE HCL IR 5 MG TAB (IMMEDIATE RELEASE) PO PRN ×2 (21:00→22:04)
[2019-04-10] MEDS: DOCUSATE SODIUM 100 MG CAP PO SCH (21:00)
[2019-04-10] MEDS: SENNA 8.6 MG TAB PO SCH (21:00)
[2019-04-10] MEDS: ASPIRIN 81 MG ECTAB PO SCH (21:02)
[2019-04-10] MEDS: INSULIN GLARGINE SOLOSTAR 100 UNITS/ML 3 ML PEN SQ SCH (21:03)
[2019-04-11] MEDS: CHECK SCOPOLAMINE PATCH PLACEMENT SCH ×4 (00:20→23:25)
[2019-04-11] MEDS ORDERED: Nursing to Pharmacy Communication ONE (01:51)
--- NOTE | 2019-04-11 05:02 | Operative Report ---
DATE OF OPERATION: 04/10/2019 SURGEON: Keanu Judge MD UNIT TENDER: AV Larios PREOPERATIVE DIAGNOSIS: Right great toe osteomyelitis. POSTOPERATIVE DIAGNOSIS: Right great toe osteomyelitis. PROCEDURE PERFORMED: Right great toe amputation. COMPLICATIONS: None. ESTIMATED BLOOD LOSS: 10 mL. FLUID REPLACEMENT: 500 mL crystalloid fluid replacement. TOURNIQUET TIME: 10 minutes. OPERATIVE INDICATIONS: The patient is a 64-year-old fairly long-term diabetic who has had a several-week history of a right toe infection. This all started when she [place]. She has basically been neglecting this. She has been out gardening without shoes on that it got worse over time. She was admitted to the hospital 2 days ago with early signs of sepsis. She was admitted and IV antibiotics were provided. She is improving. X-rays show bony destruction of the distal phalanx. She has significant soft tissue infection of the great toe with obvious pus and purulent debris. MRI confirmed osteomyelitis. The patient was indicated for right great toe amputation. I did explain to her that there is no guarantee that this will cure her infection. OPERATIVE SPECIMENS: I did culture the wound deep x1 and sent for analysis and culture and Gram stain. OPERATIVE PROCEDURE: The patient was taken to the operating room, identified and placed on the operative table in supine position. All contact areas were appropriately padded. The patient has been receiving IV antibiotics on the floor. A general anesthetic was implemented. A right ankle tourniquet was placed. The right foot was then scrubbed with Hibiclens and then prepped with ChloraPrep and draped in usual sterile fashion. The right leg was elevated, but not exsanguinated. The tourniquet was placed at 300 mmHg. A fish mouth incision was made at the base of the great toe proximal to any areas of obvious infection. Sharp dissection was carried through subcutaneous tissue directly down to the bone. The bone was skeletonized and the toe was disarticulated at the MTP joint. She did have severe arthritis at this joint. The soft tissues looked pretty clean. I identified the extensor and flexor tendons, applied traction to them and cut them and allowed them to retract. I then irrigated the wound extensively. The tourniquet was then let down for a tourniquet time of 10 minutes. Hemostasis was assured with use of electrocautery. I once again irrigated the wound extensively. Hemostasis was assured. The skin was then closed with 3-0 nylon suture in simple fashion. The foot was then cleaned, dried and a sterile dressing of Xeroform, 4 x 4's, sterile cast padding and a Coban wrap were applied followed by postop shoe. The patient was then brought out of general anesthesia and transferred to the recovery room in stable condition. The patient tolerated the procedure well with no complications. All needle and sponge counts were correct at the end of the operation. I attest to the content of the Intraoperative Record and any orders documented therein. Any exception s are noted below.
[2019-04-11] MEDS: OXYCODONE HCL IR 5 MG TAB (IMMEDIATE RELEASE) PO PRN ×3 (05:42→21:16)
[2019-04-11] MEDS: CHOLECALCIFEROL 1,000 UNITS TAB PO SCH (07:23)
[2019-04-11] MEDS: PANTOprazole 40 MG TAB PO SCH (07:23)
[2019-04-11] MEDS: LOSARTAN/HCTZ 50/12.5MG TAB PO SCH (07:24)
[2019-04-11] MEDS: DOCUSATE SODIUM 100 MG CAP PO SCH ×2 (07:24→21:08)
[2019-04-11] MEDS: MULTIVITAMIN TAB PO SCH (07:24)
[2019-04-11] MEDS: ASPIRIN 81 MG ECTAB PO SCH ×2 (07:24→21:09)
[2019-04-11] MEDS: FERROUS GLUCONATE 324 MG TAB PO SCH ×2 (07:24→15:44)
[2019-04-11 08:27] LABS: Hematocrit (blood only) 30.9 % (37-47); Hemoglobin 10.2 g/dL (12.0-16.0); Mean Corpuscular Volume 95.4 fL (80-100); Mean Platelet Volume 9.6 fL (7.4-10.4); Platelet Count 219 K/uL (130-400); RDW Coefficient of Variation 13.3 % (11.5-14.5); Red Blood Count 3.24 M/uL (4.2-5.4); White Blood Count 8.31 K/uL (4.8-10.8)
--- NOTE | 2019-04-11 08:36 | Progress Note ---
DATE: 04/11/2019 SUBJECTIVE: A 64-year-old white female postop day #1 from a right great toe amputation for chronic osteomyelitis. She is doing okay. Having some pain. A little bit sad that she has lost her toe. OBJECTIVE: VITAL SIGNS: Temperature 37.1. Vital signs stable. EXTREMITIES: Examination of the right foot reveals the dressing to be in place. Just a little bit dry bloody drainage on the dressing. She is neurologically stable. ASSESSMENT: A 64-year-old white female diabetic postop day 1 from a right great toe amputation for infection. Seems to be doing okay. PLAN: 1. DVT prophylaxis including thigh-high TEDs, SCDs. Recommend a baby aspirin twice a day for a month. 2. PT/OT. She can weightbear on this right leg, but should minimize weightbearing as much as possible. 3. Wound management. We are going to leave this bandage on for 2 weeks. I would recommend 24 hours of postoperative IV antibiotics through today and then change her to Augmentin 500 mg 3 times a day for 2 weeks until we see her for wound check. This is not a clean wound at this point. The bone infection should be gone, but there was some soft tissue infection proximally. We would recommend 2 weeks of p.o. antibiotics postop. 4. Disposition: She is likely orthopedically okay for discharge tomorrow. Any orthopedic questions can be directed to me at [phone].
[2019-04-11] MEDS: INSULIN ASPART 100 UNITS/ML 3 ML PEN SC SCH ×4 (08:39→21:11)
[2019-04-11 08:59] LABS: BUN Creatinine Ratio 12.2 (10-20); Calcium 8.4 mg/dl (8.5-10.1); Creatinine Clr Calc Pharmacy 78.5 ml/min; Est GFR (African American) 78.3; Est GFR (Non-African American) 67.5; Potassium 3.7 mmol/L (3.5-5.1)
[2019-04-11] MEDS ORDERED: POLYETHYLENE (MIRALAX) 17 GM PACK PO ONE (11:25)
--- NOTE | 2019-04-11 13:00 | Hospitalist Progress Note ---
Date of Service April 11, 2019 Assessment & Plan (1) Osteomyelitis of great toe of right foot: - Cut her toe on a seashell in [place] 3 weeks ago, has also been gardening barefoot. MRI showed: 1.Osteomyelitis involving the distal phalanx of the first toe as described above. 2. Punctate focus of subcutaneous gas within the medial aspect of the first toe. This could be due to a superficial laceration or a gas-forming organism. 3. Soft tissue swelling within the first toe. - Consulted orthopedics -- s/p R great toe amputation on 04/10/19, POD#1. - Wound culture +MSSA; BC (1 of 2) pos for Group B strep -- likely contaminant. - Continue Ceftriaxone for 24 hours post op; can convert to PO Augmentin 500 mg TID on 04/12/19 and continue for 2 weeks. - Pain control: Tylenol, Oxycodone and Dilaudid prn. - Aspirin 81 mg BID for DVT ppx. - PT ordered -- discharge to home vs. rehab pending evaluation. (2) Hypertension: - Continue home HCTZ/Losartan as prescribed. (3) Gastroesophageal reflux disease: - PPI daily. (4) Depression: - Not currently on anti-depressants at home. (5) Migraine headache: - Triptan prn. (6) Diabetes mellitus type 2 with complications: - Hemoglobin A1C was 10. - SSI coverage ordered -- BG has been well controlled. (7) Constipation: - Pt. refused previous doses of Senokot and Colace; has not had a BM since Monday. - Miralax x 1 dose; will require further doses if necessary. - Colace 100 mg BID and Senokot qhs scheduled. - Consider KUB to rule out obstruction. (8) DVT prophylaxis: - SCDs; Aspirin 81 mg BID. Dispo: Med/surg; PT evaluation ordered -- discharge likely over next 24-48 hours pending evaluation. Subjective Pt. is doing well overall. She has pain in right toe, improved with pain medication. Has not had a BM since -- is not passing gas. Refused some doses of scheduled Colace and Senokot. Will order Miralax x 1 dose. Denies nausea/abd distention. Plan for PT evaluation today for discharge planning. Review of Systems Review of Systems: All systems reviewed & are unremarkable except as noted in HPI & below Constitutional: no fever, no chills, no fatigue and no weakness Respiratory: no cough, no dyspnea, no dyspnea on exertion and no wheezing Cardiovascular: no chest pain, no palpitations and no edema Gastrointestinal: + constipation; no abdominal pain, no bloating, no nausea and no vomiting Genitourinary: no difficulty urinating Musculoskeletal: + joint pain; no back pain Integumentary: no non-healing lesions Allergy / Immunological: no rash Physical Exam Physical Exam: General: Resting comfortably in no apparent distress HEENT: NC/AT; PERRLA with EOMI; Basye conjunctiva, MMM. No erythema of posterior pharynx Neck: Supple and nontender Cardiac: RRR Lungs: CTA bilaterally Abdomen: Bowel normoactive X 4; Nontender to palpatio Extremities: Warm. No edema present. Dressing in place over toe. Neuro: No focal weakness Skin: No rash Results & Data Vital Signs (Past 12 Hours) Vital Signs Temp Pulse Resp BP Pulse Ox 04/11/19 11:15 37.2 C 77 16 109/58 L 95 04/11/19 08:17 37.0 C 75 16 129/73 96 04/11/19 03:22 37.1 C 76 16 133/72 98 Laboratory Results 04/11/19 04/11/19 04/11/19 Range/Units 12:19 08:11 07:57 WBC (4.8-10.8) K/uL RBC (4.2-5.4) M/uL Hgb (12.0-16.0) g/dL Hct (37-47) % MCV (80-100) fL MCH (25-34) pg MCHC (32-36) g/dL RDW Std Deviation (36.4-46.3) fL RDW Coeff of Pauline (11.5-14.5) % Plt Count (130-400) K/uL MPV (7.4-10.4) fL Sodium 140 (136-145) mmol/L Potassium 3.7 (3.5-5.1) mmol/L Chloride 105 (98-107) mmol/L Carbon Dioxide 27 (21-32) mmol/L Anion Gap 8.0 (3-11) BUN 11 (7-18) mg/dl Creatinine 0.89 (0.6-1.2) mg/dl Est Cr Clr Drug Dosing 78.5 ml/min Est GFR ( Amer) 78.3 Est GFR (Non-Af Amer) 67.5 BUN/Creatinine Ratio 12.2 (10-20) Glucose 116 H (70-99) mg/dl POC Glucose 142 H 111 H (70-99) Calcium 8.4 L (8.5-10.1) mg/dl 04/11/19 04/10/19 04/10/19 Range/Units 07:57 20:56 17:18 WBC 8.31 (4.8-10.8) K/uL RBC 3.24 L (4.2-5.4) M/uL Hgb 10.2 L (12.0-16.0) g/dL Hct 30.9 L (37-47) % MCV 95.4 (80-100) fL MCH 31.5 (25-34) pg MCHC 33.0 (32-36) g/dL RDW Std Deviation 47.0 H (36.4-46.3) fL RDW Coeff of Pauline 13.3 (11.5-14.5) % Plt Count 219 (130-400) K/uL MPV 9.6 (7.4-10.4) fL Sodium (136-145) mmol/L Potassium (3.5-5.1) mmol/L Chloride (98-107) mmol/L Carbon Dioxide (21-32) mmol/L Anion Gap (3-11) BUN (7-18) mg/dl Creatinine (0.6-1.2) mg/dl Est Cr Clr Drug Dosing ml/min Est GFR ( Amer) Est GFR (Non-Af Amer) BUN/Creatinine Ratio (10-20) Glucose (70-99) mg/dl POC Glucose 176 H 154 H (70-99) Calcium (8.5-10.1) mg/dl 04/10/19 Range/Units 15:33 WBC (4.8-10.8) K/uL RBC (4.2-5.4) M/uL Hgb (12.0-16.0) g/dL Hct (37-47) % MCV (80-100) fL MCH (25-34) pg MCHC (32-36) g/dL RDW Std Deviation (36.4-46.3) fL RDW Coeff of Pauline (11.5-14.5) % Plt Count (130-400) K/uL MPV (7.4-10.4) fL Sodium (136-145) mmol/L Potassium (3.5-5.1) mmol/L Chloride (98-107) mmol/L Carbon Dioxide (21-32) mmol/L Anion Gap (3-11) BUN (7-18) mg/dl Creatinine (0.6-1.2) mg/dl Est Cr Clr Drug Dosing ml/min Est GFR ( Amer) Est GFR (Non-Af Amer) BUN/Creatinine Ratio (10-20) Glucose (70-99) mg/dl POC Glucose 154 H (70-99) Calcium (8.5-10.1) mg/dl
[2019-04-11] MEDS: cefTRIAXone SODIUM 2,000 MG in DEXTROSE 5% 50 ML IV SCH (15:44)
[2019-04-11] MEDS: SENNA 8.6 MG TAB PO SCH (21:09)
[2019-04-11] MEDS: INSULIN GLARGINE SOLOSTAR 100 UNITS/ML 3 ML PEN SQ SCH (21:12)
[2019-04-12] MEDS: OXYCODONE HCL IR 5 MG TAB (IMMEDIATE RELEASE) PO PRN ×2 (05:41→11:44)
[2019-04-12] MEDS: MULTIVITAMIN TAB PO SCH (08:04)
[2019-04-12] MEDS: PANTOprazole 40 MG TAB PO SCH (08:04)
[2019-04-12] MEDS: FERROUS GLUCONATE 324 MG TAB PO SCH (08:04)
[2019-04-12] MEDS: LOSARTAN/HCTZ 50/12.5MG TAB PO SCH (08:04)
[2019-04-12] MEDS: DOCUSATE SODIUM 100 MG CAP PO SCH (08:04)
[2019-04-12] MEDS: CHOLECALCIFEROL 1,000 UNITS TAB PO SCH (08:04)
[2019-04-12] MEDS: ASPIRIN 81 MG ECTAB PO SCH (08:05)
[2019-04-12] MEDS: AMOXICILLIN/CLAVULANATE 500 MG TAB PO SCH ×2 (08:05→11:58)
[2019-04-12] MEDS: CHECK SCOPOLAMINE PATCH PLACEMENT SCH (08:05)
[2019-04-12 08:10] LABS: Hematocrit (blood only) 32.1 % (37-47); Hemoglobin 10.6 g/dL (12.0-16.0); Mean Corpuscular Volume 95.5 fL (80-100); Mean Platelet Volume 9.8 fL (7.4-10.4); Platelet Count 248 K/uL (130-400); RDW Coefficient of Variation 13.4 % (11.5-14.5); RDW Standard Deviation 46.9 fL (36.4-46.3); Red Blood Count 3.36 M/uL (4.2-5.4); White Blood Count 7.98 K/uL (4.8-10.8)
--- NOTE | 2019-04-12 08:34 | Progress Note ---
DATE: 04/12/2019 SUBJECTIVE: A 64-year-old white female diabetic postop day 2 from a right great toe amputation. She is doing okay. Pain is controlled. No new complaints. OBJECTIVE: VITAL SIGNS: Temperature 36.6. Vital signs stable. EXTREMITIES: Examination of the right foot reveals the dressing to be in place. No significant drainage. Dressing seemed to be fitting appropriately. LABORATORY DATA: Culture results are growing multiple bacteria which are not surprising. ASSESSMENT: A 64-year-old white female postop day 2 from right great toe amputation. The bone infection is gone. I do believe there is some residual degree of soft tissue infection. We need to keep her on some antibiotics until her wound is healed. PLAN: From the orthopedic standpoint, she is okay to be discharged on oral antibiotics. She can stop the IV antibiotics. I would recommend Augmentin 500 mg 3 times a day for 2 weeks until I see her back. She is just going to leave this bandage on. We would recommend baby aspirin twice a day for DVT prophylaxis. Any orthopedic questions can be directed to me at [phone].
[2019-04-12 08:36] LABS: BUN Creatinine Ratio 11.9 (10-20); Creatinine Clr Calc Pharmacy 63.5 ml/min; Est GFR (African American) 60.6; Est GFR (Non-African American) 52.3; Potassium 3.6 mmol/L (3.5-5.1)
[2019-04-12] MEDS: INSULIN ASPART 100 UNITS/ML 3 ML PEN SC SCH ×2 (08:52→12:50)
--- NOTE | 2019-04-12 11:00 | Discharge Summary ---
Date of Service April 12, 2019 Admission HPI Per Admitting Provider 64 y/o F c/o R great toe wound. Pt states that she had an ingrown toenail removal on her R great toe a few years ago and it has "always been tight and swollen since then". No infection issues though. She states that she was in [place] about 2 weeks ago and cut her R great toe on a sea shell. It has not healed and has in fact gotten much worse. She has had increased redness, swelling, and pain since that time. It does bleed occasionally but more purulent drainage than bleeding. She has not seen anyone for this and no abx use. She has no prior hx of nonhealing skin infections. Pt has had periodic fevers x4 days. She gets nauseated at times and this passes if she does not eat anything. No emesis. She states she has diarrhea at baseline and it is no different than her usual. Her BS have been elevated recently. Pt states she has a headache that feels like her usual migraine that can be triggered by not eating. She had not eaten anything yet today due to nausea. She does feel improved and would like to eat as this usually resolves her migraines. Pt denies SOB, chest pain, abd pain Principal Diagnosis Right great toe osteomyelitis and amputation Discharge Exam Constitutional WD/WN, vitals as above Respiratory normal respiratory effort, lungs clear to auscultation Cardiovascular RRR, no murmur, no edema Gastrointestinal (Abdomen) normal bowel sounds, soft, nontender, no hepatosplenomegaly Musculoskeletal no cyanosis or clubbing, extremities motor strength 5/5 Left upper arm muscle tender to palpation, no pain, crepitus or warmth around joints. Full range of motion. Skin no rashes, warm and dry Neurologic moves all extremities and awake Psychiatric A+Ox3, euthymic affect Discharge Data Allergies Allergy/AdvReac Type Severity Reaction Status Date / Time No Known Drug Allergies Allergy Unknown NKDA Verified 04/08/19 12:58 Consultations 04/08/19 13:55 ED Decision to Admit Stat 04/08/19 16:50 Consult Orthopedic Surgery Routine 04/10/19 18:00 Consult Case Management - Discharge Planning Routine Procedures Performed Operation Date: 04/10/19 14:35 Actual Procedures p Right Great Toe Amputation(Right) - Keanu Judge MD Ordered Studies 04/08/19 16:50 MR foot RT w/o con Stat Hospital Course (1) Osteomyelitis of great toe of right foot: - Cut her toe on a seashell in [place] 3 weeks ago, has also been gardening barefoot. MRI showed: 1.Osteomyelitis involving the distal phalanx of the first toe as described above. 2. Punctate focus of subcutaneous gas within the medial aspect of the first toe. This could be due to a superficial laceration or a gas-forming organism. 3. Soft tissue swelling within the first toe. - Consulted orthopedics -- s/p R great toe amputation on 04/10/19 - Wound culture +MSSA; BC (1 of 2) pos for Group B strep -- likely contaminant. - Continued Ceftriaxone for 24 hours post op and then converted to PO Augmentin 500 mg TID on 04/12/19 and continue for 2 weeks. - Pain control: Tylenol, Oxycodone and Dilaudid prn while inpatient - Aspirin 81 mg BID for DVT ppx - continue for 30 days per surgery - PT ordered -- can discharge to home (2) Hypertension: - Continue home HCTZ/Losartan as prescribed. (3) Gastroesophageal reflux disease: - PPI daily. (4) Depression: - Not currently on anti-depressants at home. (5) Migraine headache: - Triptan prn. (6) Diabetes mellitus type 2 with complications: - Hemoglobin A1C was 10. - SSI coverage ordered -- BG has been well controlled. - per clinical systems educator recommendation - will add metformin ER 500 mg daily regimen and recommend that patient increase blood sugar checks to AC & HS at home. She can continue to titrate upward with her metformin to 1000 mg bid (7) Constipation: - Pt. refused previous doses of Senokot and Colace; has not had a BM since Monday. Taking colace and senakot now, refused suppository or enema - Colace 100 mg BID and Senokot qhs scheduled - will continue for home - no nausea or vomiting or abd pain - remove scopalamine patch (8) DVT prophylaxis: - Aspirin 81 mg BID for 30 days Total Time Total Time Spent Total Time Spent (In Minutes): greater than 30 minutes Discharge Plan Discharge Items Reason For Visit: POSSIBLE OSTEOMYELITIS Discharge Diagnosis: Right Great Toe amputation for infection Discharge Goals: Decrease discomfort, Improve disease control and Therapeutic intervention Activity: Per 'Additional Instructions' section Weightbearing: Right weightbearing Weightbearing Comment: Weightbear as needed. Elevate foot as much as possible Non-emergency contact: Surgeon Call non-emergency contact if: you have any medication questions Follow-up/Referrals: Bong Bess MD [Primary Care Provider] - Keanu Judge MD [Surgeon] - (Schedule return to clinic appointment 2 weeks from surgery date. ) Addtl Provider Instructions: Keep Bandage/Dressing clean, dry, and in place until return to clinic appointment. May weightbear as tolerated on right foot, but keep foot elevated as much as possible. Please follow up with surgery in 2 weeks. Please follow up with your primary care provider within about a week. Continue taking aspirin twice per day for 30 days. I have added metformin to your insulin regimen. Please be sure to check your blood sugars before meals and before bed and keep a log to take to your doctor. You should work with your provider to further refine your diabetes regimen for better control. I have included information on what to do if your blood sugar go es too low. Prescriptions: New amoxicillin-pot clavulanate 500-125 mg Tablet 1 tab PO TIDM Qty: 14 RF: 0 aspirin [Ecotrin Low Strength] 81 mg Tablet,Delayed Release (Dr/Ec) 81 mg PO BID Qty: 60 RF: 0 oxycodone 5 mg Tablet 5 - 10 mg PO Q4H PRN (Reason: pain) Qty: 20 RF: 0 sennosides [Senokot] 8.6 mg Tablet 17.2 mg PO HS Qty: 30 RF: 0 docusate sodium 100 mg Capsule 100 mg PO BID Qty: 30 RF: 0 metformin 500 mg tablet extended release 24hr 500 mg PO DAILY Qty: 30 RF: 0 Continued cholecalciferol (vitamin D3) 2,000 unit tablet 2,000 unit PO .Take 1 tablet daily RF: 0 losartan-hydrochlorothiazide 100-25 mg tablet 1 tab PO .TAKE ONE TABLET BY M Qty: 90 RF: 0 omeprazole 20 mg capsule,delayed release(DR/EC) 20 mg PO .TAKE 1 CAPSULE Daily Qty: 90 RF: 0 Lantus U-100 Insulin 100 unit/mL Solution 50 unit SUBCUT QPM RF: 0 sumatriptan succinate 25 mg Tablet 25 mg PO UD RF: 0 Novolog U-100 Insulin aspart 100 unit/mL Solution SUBCUT USEASDIRECTD RF: 0 Krames/Other Patient Handouts: Amoxicillin Trihydrate Clavulanate Potassium Oral tablet, Hypoglycemia Admission Data Admit Date/Time: 04/08/19 16:14 Attending Provider: Tian Cardozo Admit Provider: Ammy Whitaker Primary Care Provider: Bong Bess Other Providers: Ammy Whitaker ; Keanu Judge Service: Medical
[2019-04-12] MEDS ORDERED: VANCOMYCIN TROUGH ONE (13:30)
== END 2019-04-12 14:22 | disposition home or self-care (01) | DRG 617 ==
LOC: ED 11:47 → SUATTDRO 16:14 → 3W 16:14

== ENCOUNTER 2022-03-21 11:20 | Inpatient (IN) ==
[2022-03-21] MEDS ORDERED: ACETAMINOPHEN 500 MG TAB PO STA (12:09)
[2022-03-21] MEDS ORDERED: SODIUM CHLORIDE 0.9% 1000ML 1,000 ML IV SCH (12:15)
[2022-03-21 12:21] LABS: Basophils # (auto) 0.02 K/uL (0-0.2); Basophils % (auto) 0.1 %; Hematocrit (blood only) 33.1 % (37-47); Hemoglobin 11.3 g/dL (12.0-16.0); Immature Granulocytes # (auto) 0.04 K/uL (0.00-0.02); Immature Granulocytes % (auto) 0.2 %; Lymphocytes # (auto) 2.11 K/uL (1.2-3.4); Mean Corpuscular Hemoglobin 32.1 pg (25-34); Mean Corpuscular Hgb Conc 34.1 g/dL (32-36); Mean Platelet Volume 10.3 fL (7.4-10.4); Monocytes # (auto) 1.32 K/uL (0.11-0.59); Monocytes % (auto) 7.5 %; Neutrophils # (auto) 14.16 K/uL (1.4-6.5); Neutrophils % (auto) 80.2 %; Platelet Count 235 K/uL (130-400); RDW Coefficient of Variation 13.3 % (11.5-14.5); RDW Standard Deviation 45.9 fL (36.4-46.3); Red Blood Count 3.52 M/uL (4.2-5.4); White Blood Count 17.65 K/uL (4.8-10.8)
[2022-03-21 12:39] LABS: INR 1.2 (0.9-1.1); Prothrombin Time 12.6 Seconds (9.0-12.0)
[2022-03-21 12:41] LABS: Albumin Globulin Ratio 0.9 (0.9-2); Albumin Level 3.8 gm/dl (3.4-5.0); BUN Creatinine Ratio 15.5 (10-20); Bilirubin,Total 0.8 mg/dl (0.2-1.0); Creatinine Clr Calc Pharmacy 52.7 ml/min; Est GFR (African American) 49.3 ml/min; Est GFR (Non-African American) 42.5 ml/min; Globulin 4.2 gm/dl (2.5-4.0); Magnesium 1.3 mg/dl (1.7-2.4); Potassium 3.8 mmol/L (3.5-5.1)
--- NOTE | 2022-03-21 12:51 | XRay Report ---
XR chest 1V portable CLINICAL HISTORY: SEPSIS. COMPARISON STUDY: 04/08/2019 TECHNIQUE: 1 view of the chest FINDINGS: Single frontal view of the chest demonstrates the cardiomediastinal silhouette to be within normal li mits. The lungs are clear of alveolar opacities. There is no evidence for pleural effusion. There is no evidence for vascular congestion. There is no acute osseous pathology. IMPRESSION: 1. No acute cardiopulmonary disease. ACT 112: Negative or not required by law. Electronically signed by: Jace An M.D. 03/21/2022 12:50 PM
--- NOTE | 2022-03-21 12:54 | XRay Report ---
XR foot LT min 3V routine CLINICAL HISTORY: L great toe infection COMPARISON STUDY: None. FINDINGS: Soft tissue swelling within the left first toe. There is an 8 mm focal skin ulceration at t he distal left first toe. No underlying bony destruction to suggest an osteomyelitis. Plantar heel sp ur is noted. 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 The Lisfranc joint is intact. IMPRESSION: 1. There is a small focal skin ulceration and soft tissue swelling within the left first toe. 2. No evidence for osteomyelitis. ACT 112: Negative or not required by law. Electronically signed by: Nelson Galindo M.D. 03/21/2022 12:53 PM
[2022-03-21 13:17] LABS: Troponin I High Sensitivity 82.3 pg/ml (0-14)
[2022-03-21 13:21] LABS: Influenza A virus by PCR Negative (Neg); Influenza B virus by PCR Negative (Neg); RSV by PCR Negative (Neg); SARS CoV2 RNA(COVID-19) InHosp NEGATIVE (Negative)
[2022-03-21] MEDS ORDERED: VANCOMYCIN HCL 2,750 MG in SODIUM CHLORIDE 0.9% 500 ML IV ONE (14:06)
[2022-03-21] MEDS ORDERED: VANCOMYCIN CONSULT ACTIVE PRN (14:06)
--- NOTE | 2022-03-21 14:29 | History & Physical Report ---
Date of Service March 21, 2022 Assessment & Plan (1) Sepsis: Plan: - Source suspected to be left toe, has become increasingly erythematous and edematous since Monday when toenail fell off, distal phalanx appears necrotic. - WBC 17.65, temp 102.5, HR 90s. Lactate 1.8, procalcitonin 0.18, CRP 16.38, ESR 79. - Blood cultures ordered, pending. Started empirically on vancomycin in ED, will switch to Zosyn for now as she does not have a history of MRSA. - Received 1L NSS in ED, will continue maintenance fluid with LR's at 150 cc/hour (2) Infection of great toe: Plan: - As above, will order MRI for further evaluation and plan to consult [facility] for possible intervention as she has ovidio them in the past for amputation of right toe and is requesting them. (3) Elevated troponin: Plan: - 82.3 in ED, without chest pain or anginal equivalent, in setting of sepsis infection. Placed on telemetry bed. - Repeat 2 hours later 63.2. - Continue to monitor. (4) Hypomagnesemia: Plan: - 1.3, will replete and recheck in AM. (5) Dyslipidemia: Plan: - Continue rosuvastatin 5 mg twice weekly. (6) Type 2 diabetes mellitus, uncontrolled: Plan: - Home regimen includes metformin 500 mg daily as well as NPH/regular insuli, reportedly takes 45 units with breakfast and 40 - 45 units with lunch and dinner. - Hold home meds and convert to basal insulin with accuchecks/SSI achs. - HgbA1c in AM. - CC diet. (7) Chronic kidney disease: Plan: - Cr 1.29, GFR 42.5, at baseline. - Avoid nephrotoxic agents, renally dose medications as able. (8) Hypertension: Plan: - Continue losartan-100 mg/HCTZ-25 mg daily. (9) Gastroesophageal reflux disease: Plan: - Continue PPI. (10) Migraine headache: Plan: - Continue sumatriptan 6 mg as needed. Plan: - Admit to med/tele. - SCDs, Lovenox for DVT ppx. - Full Code. History of Present Illness Chief Complaint: increasing left foot redness, swelling x 4 days Primary Care Provider: Grey Bess MD Mrs. Rucker is a 66-year-old female with past medical history of IDDM2 with peripheral neuropathy and diabetic retinopathy, CKD3, dyslipidemia, hypertension, GERD, and migraine headaches who presents today from home due to increasing erythema and edema of her left foot. Patient states back in late January, she clipped a piece of skin off of her left great toe, and several days later it began to appear infected. She called her PCP who prescribed her Augmentin for 10 days. It initially appeared to be getting better, until Monday when the toenail fell off the toe. Ever since then, it has become increasingly red, swollen, and painful to touch. The swelling has extended up to her left calf. She is also noticed some fever and chills at home. Otherwise, without chest pain, palpitations, shortness of breath, abdominal pain, nausea, vomiting, dysuria, hematuria, diarrhea, or constipation. In ED, she is hypertensive 148/128, HR 97, temp 102.5, SPO2 >95% on room air. Labs significant for WBC 17.65, creatinine 1.29, glucose 278, magnesium 1.3, HS troponin 82.3. Chest x-ray without evidence of cardiopulmonary disease. Foot x-ray showed small focal skin ulceration and soft tissue swelling within the left first toe, however no evidence for osteomyelitis. Allergies Allergy/AdvReac Type Severity Reaction Status Date / Time amoxicillin [From Augmentin] AdvReac Intermediate Diarrhea Verified 03/21/22 15:11 clavulanic acid AdvReac Intermediate Diarrhea Verified 03/21/22 15:11 [From Augmentin] Home Medications Medication Instructions Recorded Confirmed Type cholecalciferol (vitamin D3) 50 2,000 unit PO DAILY tab 11/15/19 03/21/22 History mcg (2,000 unit) tablet pen needle, diabetic 31 gauge x #200 ea 05/28/20 02/14/22 Rx 3/16" (BD Ultra-Fine Mini Pen Needle) lancets 33 gauge (OneTouch Delica #100 ea 07/13/20 02/14/22 Rx Lancets) blood sugar diagnostic (OneTouch #50 ea 08/12/20 02/14/22 Rx Verio test strips) blood sugar diagnostic (OneTouch #400 ea 09/01/21 02/14/22 Rx Verio test strips) insulin NPH-regular 70-30 U-100 30 - 45 unit SQ TIDM #105 ml 09/01/21 03/21/22 Rx insulin 100 unit/mL subcutaneous pen (Novolin 70-30 FlexPen U-100 Insulin) losartan 100 1 tab PO DAILY #90 tab 09/01/21 03/21/22 Rx mg-hydrochlorothiazide 25 mg tablet metformin 500 mg tablet,extended 500 mg PO DAILY #90 tab 09/01/21 03/21/22 Rx release 24hr omeprazole 20 mg capsule,delayed 20 mg PO DAILY #90 cap 09/01/21 03/21/22 Rx release rosuvastatin 5 mg tablet 5 mg PO 2XWK 03/21/22 03/21/22 History sumatriptan succinate 6 mg/0.5 mL 6 mg SQ .COMPLEX PRN 03/21/22 03/21/22 History subcutaneous cartridge (refill) (Imitrex STATdose Refill) Past Med/Surg History Medical History (Updated 03/21/22 @ 19:31 by Augustin Galdamez) Anxiety Arthralgia of multiple sites Constipation Depression Diabetic peripheral neuropathy associated with type 2 diabetes mellitus Diabetic retinopathy, nonproliferative Dyslipidemia Gastroesophageal reflux disease Hypertension Infection of left elbow Inflamed seborrheic keratosis Kidney stones Left shoulder pain Migraine headache Obesity Personal history of diabetic foot ulcer PPD positive Sepsis Skin benign neoplasm Status post partial amputation of foot Type 2 diabetes mellitus, uncontrolled Type 2 diabetes mellitus, with long-term current use of insulin Urinary tract infection Vitamin D deficiency Surgical History Amputation of right great toe History of cataract surgery History of hysterectomy History of neck surgery Family History Father CHF (congestive heart failure) Brother Colorectal cancer Other No pertinent family history Denies family history of Ovarian cancer Prostate cancer Myocardial infarction Breast cancer Social History Smoking Status: Never smoker Second Hand Exposure: No; Hx Alcohol Use: Yes Alcohol type: hard liquor Alcohol Intake Frequency Comment: Occasional Hx Substance Use: No Preferred Language: Zambian Communication Ability: Effective Visual Impairment: Limited Hearing Ability: Normal Meter And Service Line Inspector Required: No Beliefs That Will Affect Care: None marital status: Current Living Situation: Spouse current occupational status: retired Feels Safe at Home: Yes Childhood Exposure to Second-Hand Smoke: Yes caffeine: Yes during the past year weight has: other Dental Care, Regularly: No Physical Activity Frequency: Daily Seatbelt Use: always Sunscreen Use: Yes Assistive Devices: None Review of Systems 2 Review of Systems: Constitutional: Fever/chills over the weekend; no, weakness, fatigue, myalgias, anorexia, night sweats Eyes: No diplopia, no worsening or blurred vision ENT: normal hearing, no trouble swallowing Respiratory: No new cough, sputum, dyspnea at rest or on exertion Cardiovascular: No chest pain, tightness or palpitations Abdomen: No pain, nausea, vomiting, diarrhea or constipation : Denies dysuria, hematuria, increased urgency/frequency, urinary retention Musculoskeletal: No joint pain, calf pain, swelling Neurologic: No weakness, numbness/tingling, or balance problems Psychiatric: No anxiety or depression Skin: Redness, swelling of left toe with radiation up left leg x3 days Physical Exam Physical Exam: General: awake, alert, no apparent distress Head: Normocephalic, atraumatic ENT: PERRL, EOMI, no pharyngeal exudate, mucous membranes moist Chest: Clear to auscultation, on room air, no adventitious breath sounds Cardiac: Regular rate and rhythm, no murmur, no JVD, normal peripheral pulses, good capillary refill Abdominal: NABS x 4 quadrants, soft, nontender to palpation, no rebound, guarding or tenderness Extremities: Normal inspection, no peripheral edema or erythema, calfs nontender to palpation Psych: Normal mood and affect Neuro: AAO x 3, strength intact bilaterally and rated 5/5, no motor deficits, speech is clear, no peripheral sensory deficits Skin: Left great toe with erythema, edema, and an ulceration on plantar surface; erythema streaking just below the kneecap with L > R swelling; without purulent drainage Results & Data Results & Data ([facility]) Vital Signs (Past 12 Hours) Vital Signs Temp Pulse Pulse Resp BP BP Pulse Ox 03/21/22 13:49 97 H 16 96 03/21/22 13:18 98 H 18 100 03/21/22 13:10 105 H 16 96 03/21/22 12:32 106 H 18 95 03/21/22 12:29 108 H 18 96 03/21/22 11:59 109 H 18 148/128 H 95 03/21/22 11:32 39.2 C H 90 20 170/78 H 93 Laboratory Results Abnormal lab results 03/21/22 03/21/22 03/21/22 Range/Units 12:04 12:04 12:04 WBC 17.65 H (4.8-10.8) K/uL RBC 3.52 L (4.2-5.4) M/uL Hgb 11.3 L (12.0-16.0) g/dL Hct 33.1 L (37-47) % Neut # (Auto) 14.16 H (1.4-6.5) K/uL [place] # (Auto) 1.32 H (0.11-0.59) K/uL Immature Gran # (Auto) 0.04 H (0.00-0.02) K/uL PT 12.6 H (9.0-12.0) Seconds INR 1.2 H (0.9-1.1) Sodium 130 L (136-145) mmol/L Chloride 95 L (98-107) mmol/L Creatinine 1.29 H (0.6-1.2) mg/dl Glucose 278 H (70-99(Fasting)) mg/dl Magnesium 1.3 L (1.7-2.4) mg/dl Troponin I High Sens 82.3 H* (0-14) pg/ml Globulin 4.2 H (2.5-4.0) gm/dl Diagnostic Findings Chest X-Ray 03/21/22 12:06 XR chest 1V portable CLINICAL HISTORY: SEPSIS. COMPARISON STUDY: 04/08/2019 TECHNIQUE: 1 view of the chest FINDINGS: Single frontal view of the chest demonstrates the cardiomediastinal silhouette to be within normal limits. The lungs are clear of alveolar opacities. There is no evidence for pleural effusion. There is no evidence for vascular congestion. There is no acute osseous pathology. IMPRESSION: 1. No acute cardiopulmonary disease. ACT 112: Negative or not required by law. Electronically signed by: Jace An M.D. 03/21/2022 12:50 PM Foot X-Ray 03/21/22 12:16 XR foot LT min 3V routine CLINICAL HISTORY: L great toe infection COMPARISON STUDY: None. FINDINGS: Soft tissue swelling within the left first toe. There is an 8 mm focal skin ulceration at the distal left first toe. No underlying bony destruction to suggest an osteomyelitis. Plantar heel spur is noted. 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 The Lisfranc joint is intact. IMPRESSION: 1. There is a small focal skin ulceration and soft tissue swelling within the left first toe. 2. No evidence for osteomyelitis. ACT 112: Negative or not required by law. Electronically signed by: Nelson Galindo M.D. 03/21/2022 12:53 PM Foot MRI 03/21/22 15:31 MR foot LT wo/w con CLINICAL HISTORY: left first toe infection ? osteo, necrosis COMPARISON STUDY: Left foot radiographs March 21, 2022. TECHNIQUE: Utilizing a 1.5 Michelle magnet and dedicated coil, multiplanar, multi echo imaging of the left forefoot was performed pre and postcontrast administration. Intravenous injection of 11 cc of Gadavist was uneventful. FINDINGS: Theatre Director images demonstrate soft tissue thickening of the mid to distal Achilles with hypointense foci within the Achilles. This favors insertional tendinopathy, suboptimally assessed on this exam. A marker was placed in the skin at site of wound. This overlies the plantar aspect of the left first toe. Note is made of increased T2 signal and enhancement within the soft tissues of the left first toe consistent with cellulitis. There is no rim-enhancing fluid collection to suggest an abscess. There is corresponding marked marrow edema within the distal phalanx of the left first toe. There is diminished T1 marrow signal within the distal tuft of the distal phalanx of the left first toe which slightly extends into the shaft of the distal phalanx. No additional sites of marrow edema within the left forefoot are present. Tarsometatarsal joints are intact. Visualized portions of the flexor and extensor tendons are intact. Moderate degenerative changes within the midfoot are present. IMPRESSION: Wound of the plantar aspect of the left first toe with cellulitis of the left first toe and evidence for acute osteomyelitis of the distal phalanx of the left first toe, as described above. No additional sites for acute os teomyelitis within the left forefoot. ACT 112: Negative or not required by law. Electronically signed by: Demarcus Caballero M.D. 03/21/2022 6:15 PM ECG Additional Comments: Sinus tachycardia with Premature supraventricular complexes and with frequent Premature ventricular complexes Possible Left atrial enlargement Borderline ECG When compared with ECG of 10-APR-2019 08:59, Premature ventricular complexes are now Present Premature supraventricular complexes are now Present. Code Status & VTE Plan Code Status Full code. Supervising Physician Co-Signing Physician Notes Patient was seen and examined independently I discussed the case with Yulia ZABALA I reviewed pertinent past medical social family history and also the plan of care and agree with the plan of care. Patient presents with what looks to be dry gangrene to her distal left great toe. Leukocytosis. Fever and tachycardia possible sepsis. Previous history of loss of the right great toe for similar reasons. Patient is a diabetic however she does have good gross palpable pulses to the posterior tibialis and dorsalis pedis of the left foot. Patient has a elevated troponin 82 without corroborating associated symptoms. Subsequently we will need to trend this. Patient is placed on Zosyn therapy at this time without a significant history of MRSA. Plain films did not show osteomyelitis but we will get a MRI. We will have a orthopedic consultation. Physical examination shows dry gangrene but loss of erythema to her left great toe no vascular streaking noted. Cardiovascularly her heart sounded to be regular lungs are clear Any exceptions will be noted below PG Care Time/CCT Total # of Minutes Spent Total Time Spent with Patient: Total time spent is greater than 50% in coordination of care (as documented) at patient's floor/unit and/or counseling patient: Coding Level of Care Code 51096 Initial Inpt Care Lvl 3 Diagnoses Infection of great toe L08.9 Sepsis A41.9 Sepsis type: sepsis due to unspecified organism Dyslipidemia E78.5 Hypertension I10 Gastroesophageal reflux disease K21.9 Migraine headache G43.909 Type 2 diabetes mellitus, uncontrolled E11.65 Chronic kidney disease N18.9 Elevated troponin R77.8 Hypomagnesemia E83.42 (1) Sepsis Sepsis type: sepsis due to unspecified organism Qualified Code(s): A41.9 - Sepsis, unspecified organism
[2022-03-21] MEDS ORDERED: SUMAtriptan succinate 6 MG/0.5 ML VIAL SQ ONE ×2 (15:21→18:30)
--- NOTE | 2022-03-21 15:37 | Electrocardiogram Report ---
Test Reason : Blood Pressure : / mmHG Vent. Rate : 106 BPM Atrial Rate : 106 BPM P-R Int : 140 ms QRS Dur : 080 ms QT Int : 328 ms P-R-T Axes : 039 -02 032 degrees QTc Int : 435 ms Poor data quality, interpretation may be adversely affected Sinus tachycardia with Premature supraventricular complexes and with frequent Premature ventricular c omplexes Possible Left atrial enlargement Borderline ECG When compared with ECG of 10-APR-2019 08:59, Premature ventricular complexes are now Present Premature supraventricular complexes are now Present Confirmed by Caesar Castelan ([id number]) on 03/21/2022 3:37:31 PM Referred By: Konstantin Bess Confirmed By:Caesar Castelan
[2022-03-21] MEDS ORDERED: PIPERACILL/TAZOBAC CONSULT ACTIVE PRN ×2 (15:44→16:18)
[2022-03-21] MEDS ORDERED: PIPERACILLIN/TAZOBACTAM 3.375 GM in DEXTROSE 5% 100 ML IV ONE (15:44)
[2022-03-21] MEDS ORDERED: PIPERACILLIN/TAZOBACTAM 4.5 GM in DEXTROSE 5% 100 ML IV ONE ×2 (16:15→18:30)
[2022-03-21] MEDS ORDERED: PIPERACILLIN/TAZOBACTAM 3.375 GM in DEXTROSE 5% 100 ML IV SCH (16:18)
[2022-03-21] MEDS ORDERED: POLYETHYLENE (MIRALAX) 17 GM PACK PO PRN (16:18)
[2022-03-21] MEDS ORDERED: ONDANSETRON INJ 2 MG/ML 2 ML VIAL IV PRN (16:18)
[2022-03-21 17:02] LABS: C Reactive Protein 16.38 mg/dl (0-0.5)
[2022-03-21] MEDS ORDERED: GLUCOSE 10 TABS/TUBE PO PRN (17:05)
[2022-03-21] MEDS ORDERED: DEXTROSE 50% 50 ML SYRINGE IV PRN (17:05)
[2022-03-21] MEDS ORDERED: GLUCAGON FOR INJ 1 MG VIAL SQ PRN (17:05)
[2022-03-21] MEDS ORDERED: GLUCOSE 40% GEL 15 GM TUBE PO PRN (17:05)
[2022-03-21] MEDS ORDERED: CARBOHYDRATES FOR HYPOGLYCEMIA PO PRN (17:05)
[2022-03-21] MEDS ORDERED: GADOBUTROL 65ML VIAL IV ONE (17:57)
--- NOTE | 2022-03-21 18:18 | Magnetic Resonance Report ---
MR foot LT wo/w con CLINICAL HISTORY: left first toe infection ? osteo, necrosis COMPARISON STUDY: Left foot radiographs March 21, 2022. TECHNIQUE: Utilizing a 1.5 Michelle magnet and dedicated coil, multiplanar, multi echo imaging of the le ft forefoot was performed pre and postcontrast administration. Intravenous injection of 11 cc of Gada vist was uneventful. FINDINGS: Restaurant Team Member images demonstrate soft tissue thickening of the mid to distal Achilles with hypointe nse foci within the Achilles. This favors insertional tendinopathy, suboptimally assessed on this exa m. A marker was placed in the skin at site of wound. This overlies the plantar aspect of the left fi rst toe. Note is made of increased T2 signal and enhancement within the soft tissues of the left firs t toe consistent with cellulitis. There is no rim-enhancing fluid collection to suggest an abscess. T here is corresponding marked marrow edema within the distal phalanx of the left first toe. There is d iminished T1 marrow signal within the distal tuft of the distal phalanx of the left first toe which s lightly extends into the shaft of the distal phalanx. No additional sites of marrow edema within the left forefoot are present. Tarsometatarsal joints are intact. Visualized portions of the flexor and e xtensor tendons are intact. Moderate degenerative changes within the midfoot are present. IMPRESSION: Wound of the plantar aspect of the left first toe with cellulitis of the left first toe and evidence for acute osteomyelitis of the distal phalanx of the left first toe, as described above. No additional sites for acute osteomyelitis within the left forefoot. ACT 112: Negative or not required by law. Electronically signed by: Demarcus Caballero M.D. 03/21/2022 6:15 PM
[2022-03-21 19:08] LABS: Troponin I High Sensitivity 63.2 pg/ml (0-14)
--- NOTE | 2022-03-21 19:31 | Emergency Department Note ---
History of Present Illness General Chief complaint: Foot Injury/Pain Stated complaint: LEFT FOOT INFECTION Time Seen by Provider: 03/21/22 12:06 History of Present Illness Provider complaint: Left great toe infection Onset (ago): week(s) 1 Location: lower extremity and left Severity: mild Pain Consistency: + constant Maximum Pain Intensity: 3 Current Pain Intensity: 3 Quality: + aching and + dull Relieved By: + none Exacerbated By: + none Associated symptoms: + fever/chills, + malaise and + rash; no chest pain, no cough, no headaches, no nausea/vomiting or no shortness of breath 66-year-old diabetic female presents emergency department for left great toe infection. Patient states that 1 week ago the nail on her left great toe fell off. She states she started noticing redness and discharge coming from her toe. She states the redness has history of noted streaking up her leg and she reports fevers today. Patient does have a history of having her other great toe amputated by Dr. Stone. Patient reports that her PCP did start her on amoxicillin however she was unable to tolerate it and stopped taking it. Home Medications Medication Instructions Recorded Confirmed Type cholecalciferol (vitamin D3) 50 2,000 unit PO DAILY tab 11/15/19 03/21/22 History mcg (2,000 unit) tablet pen needle, diabetic 31 gauge x #200 ea 05/28/20 02/14/22 Rx 3/16" (BD Ultra-Fine Mini Pen Needle) lancets 33 gauge (OneTouch Delica #100 ea 07/13/20 02/14/22 Rx Lancets) blood sugar diagnostic (OneTouch #50 ea 08/12/20 02/14/22 Rx Verio test strips) blood sugar diagnostic (OneTouch #400 ea 09/01/21 02/14/22 Rx Verio test strips) insulin NPH-regular 70-30 U-100 30 - 45 unit SQ TIDM #105 ml 09/01/21 03/21/22 Rx insulin 100 unit/mL subcutaneous pen (Novolin 70-30 FlexPen U-100 Insulin) losartan 100 1 tab PO DAILY #90 tab 09/01/21 03/21/22 Rx mg-hydrochlorothiazide 25 mg tablet metformin 500 mg tablet,extended 500 mg PO DAILY #90 tab 09/01/21 03/21/22 Rx release 24hr omeprazole 20 mg capsule,delayed 20 mg PO DAILY #90 cap 09/01/21 03/21/22 Rx release rosuvastatin 5 mg tablet 5 mg PO 2XWK 03/21/22 03/21/22 History sumatriptan succinate 6 mg/0.5 mL 6 mg SQ .COMPLEX PRN 03/21/22 03/21/22 History subcutaneous cartridge (refill) (Imitrex STATdose Refill) Allergies Allergy/AdvReac Type Severity Reaction Status Date / Time amoxicillin [From Augmentin] AdvReac Intermediate Diarrhea Verified 03/21/22 15:11 clavulanic acid AdvReac Intermediate Diarrhea Verified 03/21/22 15:11 [From Augmentin] Past Med/Surg History Medical History Anxiety Arthralgia of multiple sites Constipation Depression Diabetic peripheral neuropathy associated with type 2 diabetes mellitus Diabetic retinopathy, nonproliferative Dyslipidemia Gastroesophageal reflux disease Hypertension Infection of left elbow Inflamed seborrheic keratosis Kidney stones Left shoulder pain Migraine headache Obesity Personal history of diabetic foot ulcer PPD positive Sepsis Skin benign neoplasm Status post partial amputation of foot Type 2 diabetes mellitus, uncontrolled Type 2 diabetes mellitus, with long-term current use of insulin Urinary tract infection Vitamin D deficiency Surgical History Amputation of right great toe History of cataract surgery History of hysterectomy History of neck surgery Family History Father CHF (congestive heart failure) Brother Colorectal cancer Other No pertinent family history Denies family history of Ovarian cancer Prostate cancer Myocardial infarction Breast cancer Social History Smoking Status: Never smoker Second Hand Exposure: No; Hx Alcohol Use: Yes Alcohol type: hard liquor Alcohol Intake Frequency Comment: Occasional Hx Substance Use: No Preferred Language: [place] Communication Ability: Effective Visual Impairment: Limited Hearing Ability: Normal Passenger Service Representative Required: No Beliefs That Will Affect Care: None marital status: Current Living Situation: Spouse current occupational status: retired Feels Safe at Home: Yes Childhood Exposure to Second-Hand Smoke: Yes caffeine: Yes during the past year weight has: other Dental Care, Regularly: No Physical Activity Frequency: Daily Seatbelt Use: always Sunscreen Use: Yes Assistive Devices: None Review of Systems A total of 10 systems reviewed and were otherwise negative Physical Exam Vital Signs Vital Signs - 24 hr 03/21/22 11:32 03/21/22 11:59 03/21/22 12:29 Temperature 39.2 C H Temperature Source Oral Pulse Rate 90 108 H Pulse Rate [Apical] 109 H Pulse Rhythm Regular Pulse Rhythm [Apical] Pulse Strength Normal Respiratory Rate 20 18 18 Respiratory Effort / Characteristics Non-Labored Spontaneous Non-Labored Respiratory Depth Normal Respiratory Pattern Regular Blood Pressure 170/78 H Blood Pressure [Left Arm] 148/128 H Blood Pressure Mean 108 Blood Pressure Mean [Left Arm] 134 Blood Pressure Position Sitting Pulse Oximetry 93 95 96 Oxygen Delivery Method Room Air Room Air Room Air Sepsis Recent Fever Within 48 Hours Yes Sepsis New/Unexplained Change in Mental Status No Sepsis Action Taken by Nursing No Action Required 03/21/22 12:32 03/21/22 13:10 03/21/22 13:18 Temperature Temperature Source Pulse Rate Pulse Rate [Apical] 106 H 105 H 98 H Pulse Rhythm Pulse Rhythm [Apical] Pulse Strength Respiratory Rate 18 16 18 Respiratory Effort / Characteristics Respiratory Depth Respiratory Pattern Blood Pressure Blood Pressure [Left Arm] Blood Pressure Mean Blood Pressure Mean [Left Arm] Blood Pressure Position Pulse Oximetry 95 96 100 Oxygen Delivery Method Room Air Room Air Room Air Sepsis Recent Fever Within 48 Hours Sepsis New/Unexplained Change in Mental Status Sepsis Action Taken by Nursing 03/21/22 13:19 03/21/22 13:49 Temperature Temperature Source Pulse Rate Pulse Rate [Apical] 97 H Pulse Rhythm Pulse Rhythm [Apical] Regular Pulse Strength Respiratory Rate 16 Respiratory Effort / Characteristics Non-Labored Non-Labored Respiratory Depth Respiratory Pattern Blood Pressure Blood Pressure [Left Arm] Blood Pressure Mean Blood Pressure Mean [Left Arm] Blood Pressure Position Pulse Oximetry 96 Oxygen Delivery Method Room Air Sepsis Recent Fever Within 48 Hours Sepsis New/Unexplained Change in Mental Status Sepsis Action Taken by Nursing Physical Exam GENERAL: She is oriented to person, place, and time. She appears well-developed and well-nourished. She does not appear distressed. HENT: Exam performed. -Head: Normocephalic and atraumatic. -Right Ear: External ear normal. No mastoid tenderness. -Left Ear: External ear normal. No mastoid tenderness. -Mouth/Throat: The oropharynx is clear and moist. No trismus in the jaw. No dental abscesses or uvula swelling. No oropharyngeal exudate or tonsillar abscesses. EYES: Conjunctivae and EOM are normal. Pupils are equal, round, and reactive to light. Right eye exhibits no discharge. Left eye exhibits no discharge. No scleral icterus. NECK: Normal range of motion. Neck supple. No JVD present. No spinous process tenderness present. No carotid bruit present. No rigidity. No tracheal deviation and normal range of motion present. No Brudzinski's sign and no Kernig's sign no shell. CV: Normal rate, regular rhythm, normal heart sounds and intact distal pulses. There is no peripheral edema. Palpable radial pulses bue. PULM/CHEST: Effort normal and breath sounds normal. No respiratory distress. No stridor. She has no wheezes. She has no rales. -Chest Wall: She exhibits no tenderness. ABD: The abdomen is soft. Bowel sounds are normal. She has no distension. No mass is present. There is no tenderness. There is no rebound, no guarding, no Love's sign and no tenderness at McBurney's point. Rovsig negative MUSC/SKEL: Left lower extremity: Erythema and purulent foul-smelling discharge coming from the left great toe. There is surrounding erythema with the erythema streaking up her foot and anterior ma. No fluctuant areas. No vesicles. No purpura. Nikolsky negative. Palpable DP and PT pulse. Compartments of the lower extremity are soft. Right lower extremity: Great toes amputated. No erythema or discharge. Compartments soft. Palpable DP and PT pulse. NEURO: She is alert and oriented to person, place, and time. She has normal strength. No cranial nerve deficit or sensory deficit. Coordination and gait normal. GCS eye subscore is 4. GCS verbal subscore is 5. GCS motor subscore is 6. Cerebellar tests wnl. SKIN: Skin is warm and dry. She is not diaphoretic. PSYCH: She has a normal mood and affect. Behavior is normal. Judgment and thought content normal. Course Course 1206: The patient was evaluated in room C4. A complete history and physical exam was performed Cardiac monitoring: An order was placed for continuous cardiac monitoring. The monitor shows a rate of 110 with sinus tachycardia rhythm Sepsis protocols initiated. 1415:Vital signs stable. Labs show leukocytosis. Lactic acid within normal limits. Imaging shows no evidence of osteomyelitis. Patient will be treated with vancomycin for cellulitis. Patient will be admitted to the [facility] medical team, Dr. Douglas's team notified. Administered Medications Discontinued Medications Acetaminophen (Acetaminophen 500 Mg Tab) 1,000 mg PO NOW STA Stop: 03/21/22 12:10 Last Admin: 03/21/22 12:28 Dose: 1,000 mg Documented by: [id number] Gadobutrol (Gadobutrol 65ml Vial) 11 ml IV ONCE ONE Stop: 03/21/22 17:58 Last Admin: 03/21/22 17:57 Dose: 11 ml Documented by: [id number] Sodium Chloride (Nss 1000ml) 1,000 mls @ 999 mls/hr IV .Q1H1M BETH Stop: 03/21/22 13:15 Last Infusion: 03/21/22 13:29 Dose: 0 mls/hr Documented by: [id number] Admin: 03/21/22 12:28 Dose: 999 mls/hr Documented by: [id number] Vancomycin HCl 2,750 mg/ (Sodium Chloride) 555 mls @ 200 mls/hr IV NOW ONE Stop: 03/21/22 16:52 Last Infusion: 03/21/22 17:47 Dose: 0 mls/hr Documented by: [id number] Admin: 03/21/22 14:20 Dose: 200 mls/hr Documented by: [id number] Piperacillin Sod/Tazobactam (Sod 4.5 gm/ Dextrose) 120 mls @ 200 mls/hr IV NOW ONE; Protocol Stop: 03/21/22 19:05 Last Admin: 03/21/22 18:30 Dose: 200 mls/hr Documented by: [id number] Sumatriptan Succinate (Sumatriptan Succinate 6 Mg/0.5 Ml Vial) 6 mg SQ NOW ONE Stop: 03/21/22 18:31 Last Admin: 03/21/22 18:37 Dose: 6 mg Documented by: [id number] Medical Decision Making Laboratory Data Result diagrams: 03/21/22 12:04 03/21/22 12:04 Lab Results 03/21/22 03/21/22 03/21/22 Range/Units 12:04 12:04 12:04 WBC 17.65 H (4.8-10.8) K/uL RBC 3.52 L (4.2-5.4) M/uL Hgb 11.3 L (12.0-16.0) g/dL Hct 33.1 L (37-47) % MCV 94.0 (80-100) fL MCH 32.1 (25-34) pg MCHC 34.1 (32-36) g/dL RDW Std Deviation 45.9 (36.4-46.3) fL RDW Coeff of Pauline 13.3 (11.5-14.5) % Plt Count 235 (130-400) K/uL MPV 10.3 (7.4-10.4) fL Immature Gran % (Auto) 0.2 % Neut % (Auto) 80.2 % Lymph % (Auto) 12.0 % [place] % (Auto) 7.5 % Eos % (Auto) 0.0 % Baso % (Auto) 0.1 % Neut # (Auto) 14.16 H (1.4-6.5) K/uL Lymph # (Auto) 2.11 (1.2-3.4) K/uL [place] # (Auto) 1.32 H (0.11-0.59) K/uL Eos # (Auto) 0.00 (0-0.5) K/uL Baso # (Auto) 0.02 (0-0.2) K/uL Immature Gran # (Auto) 0.04 H (0.00-0.02) K/uL PT 12.6 H (9.0-12.0) Seconds INR 1.2 H (0.9-1.1) APTT 27.0 (21.0-31.0) Seconds PTT Ratio 1.0 Sodium 130 L (136-145) mmol/L Potassium 3.8 (3.5-5.1) mmol/L Chloride 95 L (98-107) mmol/L Carbon Dioxide 26 (21-32) mmol/L Anion Gap 9 (3-11) BUN 20 (6-23) mg/dl Creatinine 1.29 H (0.6-1.2) mg/dl Est Cr Clr Drug Dosing 52.7 ml/min Est GFR ( Amer) 49.3 ml/min Est GFR (Non-Af Amer) 42.5 ml/min BUN/Creatinine Ratio 15.5 (10-20) Glucose 278 H (70-99(Fasting)) mg/dl Lactate (0.4-2.0) mmol/L Calcium 9.0 (8.5-10.1) mg/dl Magnesium 1.3 L (1.7-2.4) mg/dl Total Bilirubin 0.8 (0.2-1.0) mg/dl AST 17 (13-39) U/L ALT 15 (7-52) U/L Alkaline Phosphatase 97 (34-104) U/L Troponin I High Sens 82.3 H* (0-14) pg/ml Total Protein 8.0 (6.0-8.3) gm/dl Albumin 3.8 (3.4-5.0) gm/dl Globulin 4.2 H (2.5-4.0) gm/dl Albumin/Globulin Ratio 0.9 (0.9-2) Procalcitonin (0-0.5) ng/ml SARS-CoV-2 (PCR) (Negative) Influenza Type A (PCR) (Neg) Influenza Type B (PCR) (Neg) RSV (RT-PCR) (Neg) 03/21/22 03/21/22 03/21/22 Range/Units 12:04 12:33 13:11 WBC (4.8-10.8) K/uL RBC (4.2-5.4) M/uL Hgb (12.0-16.0) g/dL Hct (37-47) % MCV (80-100) fL MCH (25-34) pg MCHC (32-36) g/dL RDW Std Deviation (36.4-46.3) fL RDW Coeff of Pauline (11.5-14.5) % Plt Count (130-400) K/uL MPV (7.4-10.4) fL Immature Gran % (Auto) % Neut % (Auto) % Lymph % (Auto) % [place] % (Auto) % Eos % (Auto) % Baso % (Auto) % Neut # (Auto) (1.4-6.5) K/uL Lymph # (Auto) (1.2-3.4) K/uL [place] # (Auto) (0.11-0.59) K/uL Eos # (Auto) (0-0.5) K/uL Baso # (Auto) (0-0.2) K/uL Immature Gran # (Auto) (0.00-0.02) K/uL PT (9.0-12.0) Seconds INR (0.9-1.1) APTT (21.0-31.0) Seconds PTT Ratio Sodium (136-145) mmol/L Potassium (3.5-5.1) mmol/L Chloride (98-107) mmol/L Carbon Dioxide (21-32) mmol/L Anion Gap (3-11) BUN (6-23) mg/dl Creatinine (0.6-1.2) mg/dl Est Cr Clr Drug Dosing ml/min Est GFR ( Amer) ml/min Est GFR (Non-Af Amer) ml/min BUN/Creatinine Ratio (10-20) Glucose (70-99(Fasting)) mg/dl Lactate 1.8 (0.4-2.0) mmol/L Calcium (8.5-10.1) mg/dl Magnesium (1.7-2.4) mg/dl Total Bilirubin (0.2-1.0) mg/dl AST (13-39) U/L ALT (7-52) U/L Alkaline Phosphatase (34-104) U/L Troponin I High Sens (0-14) pg/ml Total Protein (6.0-8.3) gm/dl Albumin (3.4-5.0) gm/dl Globulin (2.5-4.0) gm/dl Albumin/Globulin Ratio (0.9-2) Procalcitonin 0.18 (0-0.5) ng/ml SARS-CoV-2 (PCR) NEGATIVE (Negative) Influenza Type A (PCR) Negative (Neg) Influenza Type B (PCR) Negative (Neg) RSV (RT-PCR) Negative (Neg) Imaging Data Radiologist's Impression: Chest X-Ray 03/21/22 12:06 XR chest 1V portable CLINICAL HISTORY: SEPSIS. COMPARISON STUDY: 04/08/2019 TECHNIQUE: 1 view of the chest FINDINGS: Single frontal view of the chest demonstrates the cardiomediastinal silhouette to be within normal limits. The lungs are clear of alveolar opacities. There is no evidence for pleural effusion. There is no evidence for vascular congestion. There is no acute osseous pathology. IMPRESSION: 1. No acute cardiopulmonary disease. ACT 112: Negative or not required by law. Electronically signed by: Jace An M.D. 03/21/2022 12:50 PM Foot X-Ray 03/21/22 12:16 XR foot LT min 3V routine CLINICAL HISTORY: L great toe infection COMPARISON STUDY: None. FINDINGS: Soft tissue swelling within the left first toe. There is an 8 mm focal skin ulceration at the distal left first toe. No underlying bony destruction to suggest an osteomyelitis. Plantar heel spur is noted. 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 The Lisfranc joint is intact. IMPRESSION: 1. There is a small focal skin ulceration and soft tissue swelling within the left first toe. 2. No evidence for osteomyelitis. ACT 112: Negative or not required by law. Electronically signed by: Nelson Galindo M.D. 03/21/2022 12:53 PM ECG Data Indication: + other (sepsis) Rate (beats per minute): 106 Rhythm: + sinus tachycardia ECG Intervals/blocks: + Normal QRS, + Normal MD and + Normal QT-c ECG ST segments: + Normal ST segments MDM Narrative 1206: The patient was evaluated in room C4. A complete history and physical exam was performed Cardiac monitoring: An order was placed for continuous cardiac monitoring. The monitor shows a rate of 110 with sinus tachycardia rhythm Sepsis protocols initiated. 1415:Vital signs stable. Labs show leukocytosis. Lactic acid within normal limits. Imaging shows no evidence of osteomyelitis. Patient will be treated with vancomycin for cellulitis. Patient will be admitted to the [facility] medical team, Dr. Douglas's team notified. Impression & Plan Cellulitis, Sepsis Discharge Plan Visit Data Chief Complaint: Foot Injury/Pain Stated Complaint: LEFT FOOT INFECTION Discharge Problem: Cellulitis, Sepsis Patient Disposition: Admitted As Inpatient Discharge Instructions Interventions: ED Discharge Assessment Last Done: 03/21/22 15:24
[2022-03-21] MEDS: LACTATED RINGER'S 1,000 ML IV SCH (20:00)
[2022-03-21] MEDS: MAGNESIUM SULFATE / D5W 1 GM/100 ML BAG IV SCH ×3 (20:01→23:32)
[2022-03-21] MEDS: INSULIN ASPART PER UNIT SC SCH ×2 (20:55→21:38)
[2022-03-21] MEDS: INSULIN GLARGINE SOLOSTAR 100 UNITS/ML 3 ML PEN SC SCH (21:40)
[2022-03-21] MEDS ORDERED: PIPERACILLIN/TAZOBACTAM 4.5 GM in DEXTROSE 5% 100 ML IV SCH (22:00)
[2022-03-21 22:05] LABS: Appearance Urine Clear (Clear); Bacteria Urine Automated Negative (Negative); Bilirubin Urine Negative (Negative); Blood Urine 2+ (Negative); Color Urine Yellow; Epithelial Cell Urine Auto 20-30 /lpf (0-5); Glucose Urine UA 2+ (Negative); Ketones Urine Negative (Negative); Leukocyte Esterase Urine 1+ (Negative); Nitrite Urine Negative (Negative); Protein Urine 2+ (Negative); RBC Urine Automated 0-4 /hpf (0-4); Urobilinogen Urine Negative (Negative); pH Urine 5.5 (4.5-7.5)
[2022-03-22] MEDS: PIPERACILLIN/TAZOBACTAM 4.5 GM in DEXTROSE 5% 100 ML IV SCH ×2 (00:33→08:11)
[2022-03-22] MEDS: MAGNESIUM SULFATE / D5W 1 GM/100 ML BAG IV SCH (01:40)
[2022-03-22] MEDS: LACTATED RINGER'S 1,000 ML IV SCH ×4 (02:20→22:08)
[2022-03-22] MEDS: ACETAMINOPHEN 325 MG TAB PO PRN ×3 (06:02→19:46)
[2022-03-22 07:53] LABS: Basophils # (auto) 0.01 K/uL (0-0.2); Basophils % (auto) 0.1 %; Eosinophils # (auto) 0.05 K/uL (0-0.5); Eosinophils % (auto) 0.4 %; Hematocrit (blood only) 30.1 % (37-47); Hemoglobin 9.9 g/dL (12.0-16.0); Immature Granulocytes # (auto) 0.04 K/uL (0.00-0.02); Immature Granulocytes % (auto) 0.3 %; Lymphocytes # (auto) 1.45 K/uL (1.2-3.4); Lymphocytes % (auto) 12.4 %; Mean Corpuscular Hemoglobin 30.6 pg (25-34); Mean Corpuscular Hgb Conc 32.9 g/dL (32-36); Mean Corpuscular Volume 92.9 fL (80-100); Mean Platelet Volume 10.4 fL (7.4-10.4); Monocytes # (auto) 0.97 K/uL (0.11-0.59); Monocytes % (auto) 8.3 %; Neutrophils # (auto) 9.21 K/uL (1.4-6.5); Neutrophils % (auto) 78.5 %; Platelet Count 216 K/uL (130-400); RDW Coefficient of Variation 13.4 % (11.5-14.5); RDW Standard Deviation 45.8 fL (36.4-46.3); Red Blood Count 3.24 M/uL (4.2-5.4); White Blood Count 11.73 K/uL (4.8-10.8)
[2022-03-22 08:11] LABS: BUN Creatinine Ratio 16.3 (10-20); Calcium 8.3 mg/dl (8.5-10.1); Creatinine Clr Calc Pharmacy 66.1 ml/min; Est GFR (African American) 63.9 ml/min; Est GFR (Non-African American) 55.2 ml/min; Magnesium 2.2 mg/dl (1.7-2.4); Potassium 3.8 mmol/L (3.5-5.1)
[2022-03-22] MEDS: CHOLECALCIFEROL 1,000 UNITS 25 MCG TAB PO SCH (08:16)
[2022-03-22] MEDS: PANTOprazole 40 MG TAB PO SCH (08:16)
[2022-03-22] MEDS: INSULIN ASPART PER UNIT SC SCH ×4 (08:44→20:39)
[2022-03-22] MEDS: LOSARTAN/HCTZ 50/12.5MG TAB PO SCH (08:48)
[2022-03-22] MEDS: INSULIN GLARGINE SOLOSTAR 100 UNITS/ML 3 ML PEN SC SCH ×2 (08:48→20:40)
[2022-03-22 09:03] LABS: Estimated Average Glucose 171 mg/dl; Hemoglobin A1C 7.6 % (4.5-5.6)
[2022-03-22] MEDS ORDERED: VANCOMYCIN CONSULT ACTIVE PRN (11:11)
[2022-03-22] MEDS ORDERED: VANCOMYCIN HCL 2,250 MG in SODIUM CHLORIDE 0.9% 500 ML IV ONE (11:11)
--- NOTE | 2022-03-22 11:18 | Hospitalist Progress Note ---
Date of Service March 22, 2022 Assessment & Plan (1) Sepsis: Plan: - Source suspected to be left toe, has become increasingly erythematous and edematous since Monday when toenail fell off, distal phalanx appears necrotic. - On admission,WBC 17.65, temp 102.5, HR 90s. Lactate 1.8, procalcitonin 0.18, CRP 16.38, ESR 79. - Blood cultures ordered, pending. Started empirically on vancomycin in ED, will continue - NS 100cc/hr (2) Osteomyelitis: Plan: Necrotic wound of left big toe, with osteomyelitis as seen on MRI Will monitor blood cultures continue empiric vancomycin consult Ortho or Podiatry Also consult ID (3) Infection of great toe: Plan: - As above, (4) Elevated troponin: Plan: - 82.3 in ED, without chest pain or anginal equivalent, in setting of sepsis infection. Placed on telemetry bed. - Repeat 2 hours later 63.2. - Continue to monitor. (5) Hypomagnesemia: Plan: - 1.3, will replete and recheck in AM. (6) Dyslipidemia: Plan: - Continue rosuvastatin 5 mg twice weekly. (7) Type 2 diabetes mellitus, uncontrolled: Plan: - Home regimen includes metformin 500 mg daily as well as NPH/regular insuli, reportedly takes 45 units with breakfast and 40 - 45 units with lunch and dinner. - Hold home meds and convert to basal insulin with accuchecks/SSI achs. - HgbA1c in AM. - CC diet. (8) Chronic kidney disease: Plan: - Cr 1.29, GFR 42.5, at baseline. - Avoid nephrotoxic agents, renally dose medications as able. (9) Hypertension: Plan: - Continue losartan-100 mg/HCTZ-25 mg daily. (10) Gastroesophageal reflux disease: Plan: - Continue PPI. (11) Migraine headache: Plan: - Continue sumatriptan 6 mg as needed. Plan: - Admit to med/tele. - SCDs, Lovenox for DVT ppx. - Full Code. Admission and Anticipated Discharge Date Admission Date: March 21, 2022 Subjective patient seen and examined, no new complaints, denies fevers or chills Review of Systems Review of Systems: All systems reviewed are negative, apart from the ones contained in the history. Physical Exam Physical Exam: The patient is awake, alert and oriented 3, well developed and well nourished, normocephalic and atraumatic, lying in bed and in no acute distress. HEENT--PERRL, EOMI, mucous membranes and oropharynx mildly dry Neck--supple. No JVD. No bruits. Thyroid normal, trachea midline, no adenopathy. Heart--normal S1 and S2. No murmurs, rubs or gallops. Lungs--clear bilaterally, no respiratory distress, no accessory muscle use. Abdomen--normal bowel sounds and soft. Mild epigastric and left sided abdominal pain Extremities--left big toe dry gangrene, LLE cellulitis Dermatologic--normal skin turgor, normal color, no abnormal lymph nodes, no rash. Neurologic--cranial nerves II through XII grossly intact. Rheumatologic--normal range of motion. Psychiatric--normal affect. Results & Data Results & Data ([facility]) Vital Signs (Past 12 Hours) Vital Signs Temp Pulse Resp BP BP Pulse Ox 03/22/22 07:34 98.8 F 79 18 153/72 H 95 03/22/22 03:38 98.8 F 83 20 147/65 H 96 PG Care Time/CCT Total # of Minutes Spent Total Time Spent with Patient: Total time spent is greater than 50% in coordination of care (as documented) at patient's floor/unit and/or counseling patient: Coding Level of Care Code 26600 Subseq Hosp Care Lvl 2 Diagnoses Sepsis A41.9 Sepsis type: sepsis due to unspecified organism Sepsis acute organ dysfunction status: without acute organ dysfunction Infection of great toe L08.9 Elevated troponin R77.8 Hypomagnesemia E83.42 Dyslipidemia E78.5 Type 2 diabetes mellitus, uncontrolled E11.65 Chronic kidney disease N18.9 Hypertension I10 Gastroesophageal reflux disease K21.9 Migraine headache G43.909 Osteomyelitis M86.9 Time Spent (min) 35 (1) Sepsis Sepsis type: sepsis due to unspecified organism Sepsis acute organ dysfunction status: without acute organ dysfunction Qualified Code(s): A41.9 - Sepsis, unspecified organism
--- NOTE | 2022-03-22 12:02 | Orthopedic Consultation ---
Date of Consultation March 22, 2022 Assessment & Plan (1) Osteomyelitis: Small left great toe ulceration plantar surface with noted osteomyelitis of the distal phalanx on MRI. I will discuss the case with Dr. Stone. Patient may likely need a small irrigation debridement versus amputation of the distal phalanx of the left great toe. I have discussed this with the patient. Will await Dr. Stone's input. If surgery chosen, likely will be Monday unless Dr. Stone's availability changes. History of Present Illness Reason for Consultation: Left great toe infection/osteomyelitis with cellulitis left lower extremity Attending Physician: Ksenia Garcia MD History of Present Illness Patient is a 66-year-old female with past medical history of IDDM2 with peripheral neuropathy and diabetic retinopathy, CKD3, dyslipidemia, hypertension, GERD, and migraine headaches who was admitted by the hospitalist service for cellulitis of her left lower extremity along with a left great toe infection. Patient stated that approximately at the end of January she trimmed some soft tissue off of her left great toe. She did not notice any bleeding at the time. Several days after trimming the soft tissue off of her toe, she began noting increased redness and swelling of the left great toe. She called her PCP who ended up putting her on Augmentin for 10 days. During that time the patient stated that she went to the beach and was walking around the beach and in the water. It was noted that late in the week her toe began to increase with redness and pain. She ended up having the toenail of the left great toe come off. She did not notice any gross purulence or drainage. At 1 point have some fever and chills at home. She denies any history of nausea or vomiting, chest pain, shortness of breath. He decided to come to the emergency room to be seen. She was seen by the staff and then by hospitalist service and was thusly admitted for further care. X-rays and MRI were ordered of the left foot. We have been asked to see her for her left toe infection. Allergies Allergy/AdvReac Type Severity Reaction Status Date / Time amoxicillin [From Augmentin] AdvReac Intermediate Diarrhea Verified 03/21/22 15:11 clavulanic acid AdvReac Intermediate Diarrhea Verified 03/21/22 15:11 [From Augmentin] Home Medications Medication Instructions Recorded Confirmed Type cholecalciferol (vitamin D3) 50 2,000 unit PO DAILY tab 11/15/19 03/21/22 History mcg (2,000 unit) tablet pen needle, diabetic 31 gauge x #200 ea 05/28/20 02/14/22 Rx 3/16" (BD Ultra-Fine Mini Pen Needle) lancets 33 gauge (OneTouch Delica #100 ea 07/13/20 02/14/22 Rx Lancets) blood sugar diagnostic (OneTouch #50 ea 08/12/20 02/14/22 Rx Verio test strips) blood sugar diagnostic (OneTouch #400 ea 09/01/21 02/14/22 Rx Verio test strips) insulin NPH-regular 70-30 U-100 30 - 45 unit SQ TIDM #105 ml 09/01/21 03/21/22 Rx insulin 100 unit/mL subcutaneous pen (Novolin 70-30 FlexPen U-100 Insulin) losartan 100 1 tab PO DAILY #90 tab 09/01/21 03/21/22 Rx mg-hydrochlorothiazide 25 mg tablet metformin 500 mg tablet,extended 500 mg PO DAILY #90 tab 09/01/21 03/21/22 Rx release 24hr omeprazole 20 mg capsule,delayed 20 mg PO DAILY #90 cap 09/01/21 03/21/22 Rx release rosuvastatin 5 mg tablet 5 mg PO 2XWK 03/21/22 03/21/22 History sumatriptan succinate 6 mg/0.5 mL 6 mg SQ .COMPLEX PRN 03/21/22 03/21/22 History subcutaneous cartridge (refill) (Imitrex STATdose Refill) Patient History Medical History Anxiety Arthralgia of multiple sites Constipation Depression Diabetic peripheral neuropathy associated with type 2 diabetes mellitus Diabetic retinopathy, nonproliferative Dyslipidemia Gastroesophageal reflux disease Hypertension Infection of left elbow Inflamed seborrheic keratosis Kidney stones Left shoulder pain Migraine headache Obesity Personal history of diabetic foot ulcer PPD positive Sepsis Skin benign neoplasm Status post partial amputation of foot Type 2 diabetes mellitus, uncontrolled Type 2 diabetes mellitus, with long-term current use of insulin Urinary tract infection Vitamin D deficiency Surgical History Amputation of right great toe History of cataract surgery History of hysterectomy History of neck surgery Family History Father CHF (congestive heart failure) Brother Colorectal cancer Other No pertinent family history Denies family history of Ovarian cancer Prostate cancer Myocardial infarction Breast cancer Social History Smoking Status: Never smoker Second Hand Exposure: No; Hx Alcohol Use: Yes Alcohol type: hard liquor Alcohol Intake Frequency Comment: Occasional Hx Substance Use: No Preferred Language: [place] Communication Ability: Effective Visual Impairment: Limited Hearing Ability: Normal Supervisor Yard Required: No Beliefs That Will Affect Care: None marital status: Current Living Situation: Spouse current occupational status: retired Feels Safe at Home: Yes Childhood Exposure to Second-Hand Smoke: Yes caffeine: Yes during the past year weight has: other Dental Care, Regularly: No Physical Activity Frequency: Daily Seatbelt Use: always Sunscreen Use: Yes Assistive Devices: Glasses Physical Exam Physical Exam: Patient is a 66-year-old white female who appears her stated age. Pleasant and cooperative, no acute distress, alert and oriented x3. On examination of her left great toe, she has a large calcified or callused area on the distal tip of her toe at the end of the nailbed. There is some slight crepitus noted to this on palpation but no pain. On the lateral aspect of the left great toe she has an area approximately a centimeter in width with a central area that looks to be a pinhole. She has some mild erythema but no overt purulence but there is a foul odor and she has a very small amount of serous drainage from this area. Her toenail is completely gone. Examination of the plantar surface of the great toe she has a wide area of old skin and callused skin with a central portion that is red or erythematous that is approximately 8 cm in width. There is a small opening in the the central portion of this. I cannot express any drainage from this at this time. It was essentially nontender on palpation. She is able to get through gentle range of motion without discomfort. She also has noted blackened toenail on the second left toe. There is no erythema and no discomfort. No open wound. She has noticeable swelling of the lower extremity above the ankle that has some erythema remaining. She is starting to have a little bit of decrease in her swelling but erythema continues to persist. She does have some peripheral neuropathy. She has a good dorsalis pedis pulse present. Results & Data ([facility]) Vital Signs (Past 12 Hours) Vital Signs Temp Pulse Resp BP BP Pulse Ox 03/22/22 11:32 36.8 C 77 18 116/67 96 03/22/22 07:34 37.1 C 79 18 153/72 H 95 03/22/22 03:38 37.1 C 83 20 147/65 H 96 Laboratory Results Laboratory Results WBC 11.73 K/uL (4.8-10.8) H 03/22/22 07:09 RBC 3.24 M/uL (4.2-5.4) L 03/22/22 07:09 Hgb 9.9 g/dL (12.0-16.0) L 03/22/22 07:09 Hct 30.1 % (37-47) L 03/22/22 07:09 MCV 92.9 fL (80-100) 03/22/22 07:09 MCH 30.6 pg (25-34) 03/22/22 07:09 MCHC 32.9 g/dL (32-36) 03/22/22 07:09 RDW Std Deviation 45.8 fL (36.4-46.3) 03/22/22 07:09 RDW Coeff of Pauline 13.4 % (11.5-14.5) 03/22/22 07:09 Plt Count 216 K/uL (130-400) 03/22/22 07:09 MPV 10.4 fL (7.4-10.4) 03/22/22 07:09 Immature Gran % (Auto) 0.3 % 03/22/22 07:09 Neut % (Auto) 78.5 % 03/22/22 07:09 Lymph % (Auto) 12.4 % 03/22/22 07:09 [place] % (Auto) 8.3 % 03/22/22 07:09 Eos % (Auto) 0.4 % 03/22/22 07:09 Baso % (Auto) 0.1 % 03/22/22 07:09 Neut # (Auto) 9.21 K/uL (1.4-6.5) H 03/22/22 07:09 Lymph # (Auto) 1.45 K/uL (1.2-3.4) 03/22/22 07:09 [place] # (Auto) 0.97 K/uL (0.11-0.59) H 03/22/22 07:09 Eos # (Auto) 0.05 K/uL (0-0.5) 03/22/22 07:09 Baso # (Auto) 0.01 K/uL (0-0.2) 03/22/22 07:09 Immature Gran # (Auto) 0.04 K/uL (0.00-0.02) H 03/22/22 07:09 ESR 79 mm/hr (0-30) H 03/21/22 16:20 PT 12.6 Seconds (9.0-12.0) H 03/21/22 12:04 INR 1.2 (0.9-1.1) H 03/21/22 12:04 APTT 27.0 Seconds (21.0-31.0) 03/21/22 12:04 PTT Ratio 1.0 03/21/22 12:04 Sodium 132 mmol/L (136-145) L 03/22/22 07:09 Potassium 3.8 mmol/L (3.5-5.1) 03/22/22 07:09 Chloride 99 mmol/L (98-107) 03/22/22 07:09 Carbon Dioxide 28 mmol/L (21-32) 03/22/22 07:09 Anion Gap 5 (3-11) 03/22/22 07:09 BUN 17 mg/dl (6-23) 03/22/22 07:09 Creatinine 1.04 mg/dl (0.6-1.2) 03/22/22 07:09 Est Cr Clr Drug Dosing 66.1 ml/min 03/22/22 07:09 Est GFR ( Amer) 63.9 ml/min 03/22/22 07:09 Est GFR (Non-Af Amer) 55.2 ml/min 03/22/22 07:09 BUN/Creatinine Ratio 16.3 (10-20) 03/22/22 07:09 Glucose 189 mg/dl (70-99(Fasting)) H 03/22/22 07:09 POC Glucose 215 mg/dl (70-99) H 03/22/22 12:02 Estimat Average Glucose 171 mg/dl 03/22/22 07:09 Hemoglobin A1c 7.6 % (4.5-5.6) H 03/22/22 07:09 Lactate 1.8 mmol/L (0.4-2.0) 03/21/22 12:04 Calcium 8.3 mg/dl (8.5-10.1) L 03/22/22 07:09 Magnesium 2.2 mg/dl (1.7-2.4) 03/22/22 07:09 Total Bilirubin 0.8 mg/dl (0.2-1.0) 03/21/22 12:04 AST 17 U/L (13-39) 03/21/22 12:04 ALT 15 U/L (7-52) 03/21/22 12:04 Alkaline Phosphatase 97 U/L (34-104) 03/21/22 12:04 Troponin I High Sens 63.2 pg/ml (0-14) H* D 03/21/22 16:00 C-Reactive Protein 16.38 mg/dl (0-0.5) H 03/21/22 16:00 Total Protein 8.0 gm/dl (6.0-8.3) 03/21/22 12:04 Albumin 3.8 gm/dl (3.4-5.0) 03/21/22 12:04 Globulin 4.2 gm/dl (2.5-4.0) H 03/21/22 12:04 Albumin/Globulin Ratio 0.9 (0.9-2) 03/21/22 12:04 Procalcitonin 0.18 ng/ml (0-0.5) 03/21/22 13:11 Urine Color Yellow 03/21/22 21:25 Urine Appearance Clear (Clear) 03/21/22 21:25 Urine pH 5.5 (4.5-7.5) 03/21/22 21:25 Ur Specific [place] 1.020 (1.000-1.030) 03/21/22 21:25 Urine Protein 2+ (Negative) H 03/21/22 21:25 Urine Glucose (UA) 2+ (Negative) H 03/21/22 21:25 Urine Ketones Negative (Negative) 03/21/22 21:25 Urine Blood 2+ (Negative) H 03/21/22 21:25 Urine Nitrite Negative (Negative) 05/23/22 21:25 Urine Bilirubin Negative (Negative) 03/21/22 21:25 Urine Urobilinogen Negative (Negative) 03/21/22 21:25 Ur Leukocyte Esterase 1+ (Negative) H 03/21/22 21:25 Urine WBC (Auto) 10-30 /hpf (0-5) H 03/21/22 21:25 Urine RBC (Auto) 0-4 /hpf (0-4) 03/21/22 21:25 U Hyaline Cast (Auto) 1-5 /lpf (0-5) 03/21/22 21:25 U Epithel Cells (Auto) 20-30 /lpf (0-5) H 03/21/22 21:25 Urine Bacteria (Auto) Negative (Negative) 03/21/22 21:25 SARS-CoV-2 (PCR) NEGATIVE (Negative) 03/21/22 12:33 Influenza Type A (PCR) Negative (Neg) 03/21/22 12:33 Influenza Type B (PCR) Negative (Neg) 03/21/22 12:33 RSV (RT-PCR) Negative (Neg) 03/21/22 12:33 Impressions Chest X-Ray 03/21/22 12:06 XR chest 1V portable CLINICAL HISTORY: SEPSIS. COMPARISON STUDY: 04/08/2019 TECHNIQUE: 1 view of the chest FINDINGS: Single frontal view of the chest demonstrates the cardiomediastinal silhouette to be within normal limits. The lungs are clear of alveolar opacities. There is no evidence for pleural effusion. There is no evidence for vascular congestion. There is no acute osseous pathology. IMPRESSION: 1. No acute cardiopulmonary disease. ACT 112: Negative or not required by law. Electronically signed by: Jace An M.D. 03/21/2022 12:50 PM Foot X-Ray 03/21/22 12:16 XR foot LT min 3V routine CLINICAL HISTORY: L great toe infection COMPARISON STUDY: None. FINDINGS: Soft tissue swelling within the left first toe. There is an 8 mm focal skin ulceration at the distal left first toe. No underlying bony destruction to suggest an osteomyelitis. Plantar heel spur is noted. 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 The Lisfranc joint is intact. IMPRESSION: 1. There is a small focal skin ulceration and soft tissue swelling within the left first toe. 2. No evidence for osteomyelitis. ACT 112: Negative or not required by law. Electronically signed by: Nelson Galindo M.D. 03/21/2022 12:53 PM Foot MRI 03/21/22 15:31 MR foot LT wo/w con CLINICAL HISTORY: left first toe infection ? osteo, necrosis COMPARISON STUDY: Left foot radiographs March 21, 2022. TECHNIQUE: Utilizing a 1.5 Michelle magnet and dedicated coil, multiplanar, multi echo imaging of the left forefoot was performed pre and postcontrast administration. Intravenous injection of 11 cc of Gadavist was uneventful. FINDINGS: Senior Behavioral Scientist images demonstrate soft tissue thickening of the mid to distal Achilles with hypointense foci within the Achilles. This favors insertional tendinopathy, suboptimally assessed on this exam. A marker was placed in the skin at site of wound. This overlies the plantar aspect of the left first toe. Note is made of increased T2 signal and enhancement within the soft tissues of the left first toe consistent with cellulitis. There is no rim-enhancing fluid collection to suggest an abscess. There is corresponding marked marrow edema within the distal phalanx of the left first toe. There is diminished T1 marrow signal within the distal tuft of the distal phalanx of the left first toe which slightly extends into the shaft of the distal phalanx. No additional sites of marrow edema within the left forefoot are present. Tarsometatarsal joints are intact. Visualized portions of the flexor and extensor tendons are intact. Moderate degenerative changes within the midfoot are present. IMPRESSION: Wound of the plantar aspect of the left first toe with cellulitis of the left first toe and evidence for acute osteomyelitis of the distal phalanx of the left first toe, as described above. No additional sites for acute osteomyelitis within the left forefoot. ACT 112: Negative or not required by law. Electronically signed by: Demarcus Caballero M.D. 03/21/2022 6:15 PM
[2022-03-22] MEDS: VANCOMYCIN HCL 750 MG in SODIUM CHLORIDE 0.9% 250 ML IV SCH (12:35)
--- NOTE | 2022-03-22 13:01 | Pharmacy Report ---
Pharmacy Vanc AUC Short Note - Date of Service March 22, 2022 - Assessment & Plan Assessment 66 year old F receiving Vancomycin for treatment of osteomyelitis of left big toe. Zosyn received 03/21-03/22 BCx and urine cx pending Consults for Ortho and ID Plan Vancomycin * AUC/DOMO is the preferred PK/PD target for vancomycin * AUC guided dosing is effective and associated with decreased risk of nephrotoxicity compared to traditional trough targets * Vancomycin 2750mg IV x 1 dose yesterday then 750mg IV Q12H starting now * This dose is predicted to achieve target AUC/DOMO of 400-600 mg/L.hr and may be associated with a 17% risk of nephrotoxicity * Random vancomycin level ordered for: 03/24/22 Pharmacy will continue to follow and will adjust dose/frequency as necessary. Thank you.
[2022-03-22] MEDS: SUMAtriptan succinate 6 MG/0.5 ML VIAL SQ PRN (19:42)
[2022-03-22] MEDS ORDERED: ENOXAPARIN INJ 40 MG/0.4 ML SYR SQ SCH (21:00)
[2022-03-23] MEDS: VANCOMYCIN HCL 750 MG in SODIUM CHLORIDE 0.9% 250 ML IV SCH ×2 (01:29→13:16)
[2022-03-23] MEDS ORDERED: Nursing to Pharmacy Communication SCH (04:30)
[2022-03-23] MEDS: LACTATED RINGER'S 1,000 ML IV SCH ×3 (04:54→23:07)
[2022-03-23] MEDS: INSULIN ASPART PER UNIT SC SCH ×4 (05:56→21:54)
[2022-03-23] MEDS ORDERED: SODIUM CHLORIDE 0.65% NA SOLN 45 ML (OCEAN) PRN (06:03)
[2022-03-23 07:46] LABS: Hematocrit (blood only) 30.7 % (37-47); Hemoglobin 10.1 g/dL (12.0-16.0); Mean Corpuscular Hemoglobin 30.4 pg (25-34); Mean Corpuscular Hgb Conc 32.9 g/dL (32-36); Mean Corpuscular Volume 92.5 fL (80-100); Mean Platelet Volume 10.1 fL (7.4-10.4); Platelet Count 218 K/uL (130-400); RDW Coefficient of Variation 13.3 % (11.5-14.5); RDW Standard Deviation 45.3 fL (36.4-46.3); Red Blood Count 3.32 M/uL (4.2-5.4); White Blood Count 7.74 K/uL (4.8-10.8)
--- NOTE | 2022-03-23 08:12 | Orthopedic Progress Note ---
Date of Service March 23, 2022 Assessment & Plan (1) Osteomyelitis: Plan: Surgery planned for today after 3pm per Dr. Stone. Pt NPO currently. Continue elevation of LLE. Continue IV antibx. Admission and Anticipated Discharge Date Admission Date: March 21, 2022 Subjective Pt sitting up in chair at bedside. Discussed with her that Dr. Stone available to do her I&D/amp today in the afternoon. No new complaints. Physical Exam Physical Exam: LE cellulitis is looking better today. Results & Data ([facility]) Vital Signs (Past 12 Hours) Vital Signs Temp Pulse Pulse Resp BP BP Pulse Ox 03/23/22 07:00 36.8 C 70 18 161/74 H 96 03/23/22 06:19 72 03/23/22 03:56 36.6 C 74 18 146/65 H 96 03/23/22 00:43 67 03/22/22 23:08 36.7 C 72 18 144/76 H 99
[2022-03-23 08:24] LABS: BUN Creatinine Ratio 17.1 (10-20); C Reactive Protein 12.81 mg/dl (0-0.5); Calcium 8.7 mg/dl (8.5-10.1); Est GFR (African American) 85.2 ml/min; Est GFR (Non-African American) 73.5 ml/min; Potassium 3.7 mmol/L (3.5-5.1)
[2022-03-23] MEDS ORDERED: ROSUVASTATIN CALCIUM 5 MG TAB PO SCH (09:00)
[2022-03-23] MEDS: CHOLECALCIFEROL 1,000 UNITS 25 MCG TAB PO SCH (09:19)
[2022-03-23] MEDS: LOSARTAN/HCTZ 50/12.5MG TAB PO SCH (09:20)
[2022-03-23] MEDS: PANTOprazole 40 MG TAB PO SCH (09:20)
[2022-03-23] MEDS ORDERED: INSULIN GLARGINE SOLOSTAR 100 UNITS/ML 3 ML PEN SC ONE (09:45)
[2022-03-23] MEDS: ACETAMINOPHEN 325 MG TAB PO PRN ×3 (10:59→21:54)
[2022-03-23] MEDS ORDERED: VANCOMYCIN HCL 1,750 MG in SODIUM CHLORIDE 0.9% 500 ML IV SCH (11:15)
--- NOTE | 2022-03-23 12:04 | Anesthesiology Consultation ---
Date of Service March 23, 2022 History Surgery Operation Date: 03/23/22 07:00 Proposed Procedures p Incision and Drainage Left Great Toe - Pierce Stone DO s Possible Left Distal Phalynx Amputation - Pierce Stone DO Height/Weight Height: 5 ft 6 in Weight: 113.6 kg Allergies Allergy/AdvReac Type Severity Reaction Status Date / Time amoxicillin [From Augmentin] AdvReac Intermediate Diarrhea Verified 03/21/22 15:11 clavulanic acid AdvReac Intermediate Diarrhea Verified 03/21/22 15:11 [From Augmentin] Medications Home Medications Medication Instructions Recorded Confirmed Last Taken cholecalciferol (vitamin D3) 50 2,000 unit PO DAILY tab 11/15/19 03/21/22 03/21/22 mcg (2,000 unit) tablet pen needle, diabetic 31 gauge x #200 ea 05/28/20 02/14/22 Unknown 316" (BD Ultra-Fine Mini Pen Needle) lancets 33 gauge (OneTouch Delica #100 ea 07/13/20 02/14/22 Unknown Lancets) blood sugar diagnostic (OneTouch #50 ea 08/12/20 02/14/22 Unknown Verio test strips) blood sugar diagnostic (OneTouch #400 ea 09/01/21 02/14/22 Unknown Verio test strips) insulin NPH-regular 70-30 U-100 30 - 45 unit SQ TIDM #105 ml 09/01/21 03/21/22 03/21/22 08:00 insulin 100 unit/mL subcutaneous pen (Novolin 70-30 FlexPen U-100 Insulin) losartan 100 1 tab PO DAILY #90 tab 09/01/21 03/21/22 03/21/22 mg-hydrochlorothiazide 25 mg tablet metformin 500 mg tablet,extended 500 mg PO DAILY #90 tab 09/01/21 03/21/22 03/21/22 release 24hr omeprazole 20 mg capsule,delayed 20 mg PO DAILY #90 cap 09/01/21 03/21/22 03/21/22 release rosuvastatin 5 mg tablet 5 mg PO 2XWK 03/21/22 03/21/22 03/20/22 sumatriptan succinate 6 mg/0.5 mL 6 mg SQ .COMPLEX PRN 03/21/22 03/21/22 Unknown subcutaneous cartridge (refill) (Imitrex STATdose Refill) Active Medications Generic Name Dose Route Start Last Admin Trade Name Lonny PRN Reason Stop Dose Admin Acetaminophen 650 mg 03/21/22 16:18 03/23/22 10:59 Acetaminophen 325 Mg Tab PO 04/20/22 16:17 650 mg Q4H PRN Administration Pain or Fever HCTZ/Losartan Potassium 1 tab 03/22/22 09:00 03/23/22 09:20 Losartan/Hctz 50/12.5mg Tab PO 04/21/22 08:59 1 tab DAILY BETH Administration Lactated Ringer's 1,000 mls @ 150 mls/hr 03/21/22 16:18 03/23/22 10:55 Lr IV 04/20/22 16:17 150 mls/hr .Q6H40M BETH Administration Vancomycin HCl 750 mg/ Sodium 265 mls @ 200 mls/hr 03/22/22 13:00 03/23/22 03:15 Chloride IV 05/03/22 12:59 Infused Q12H BETH Infusion Insulin Aspart 0 units 03/23/22 06:00 03/23/22 05:56 Insulin Aspart Per Unit SC 04/22/22 05:59 2 units Q6 BETH Administration Insulin Glargine 27 units 03/21/22 21:00 03/22/22 20:40 Insulin Glargine Solostar 100 Units/Ml 3 Ml Pen SC 04/20/22 20:59 27 units BID BETH Administration Pantoprazole Sodium 40 mg 03/22/22 09:00 03/23/22 09:20 Pantoprazole 40 Mg Tab PO 04/21/22 08:59 40 mg DAILY BETH Administration Protocol Rosuvastatin Calcium 5 mg 03/23/22 09:00 03/23/22 09:20 Rosuvastatin Calcium 5 Mg Tab PO 04/22/22 08:59 5 mg [id number] BETH Administration Sumatriptan Succinate 6 mg 03/21/22 16:45 03/22/22 19:42 Sumatriptan Succinate 6 Mg/0.5 Ml Vial SQ 04/20/22 16:44 6 mg DAILY PRN Administration MIGRAINE HEADACHE Vitamin D 2,000 units 03/22/22 09:00 03/23/22 09:19 Cholecalciferol 1,000 Units 25 Mcg Tab PO 04/21/22 08:59 2,000 units DAILY BETH Administration NPO Date Last Intake of Fluids: 03/22/22 Time Last Intake of Fluids: 23:45 Date Last Intake of Solids: 03/22/22 Time Last Intake of Solids: 23:30 Past Medical History Medical History Anxiety Arthralgia of multiple sites Constipation Depression Diabetic peripheral neuropathy associated with type 2 diabetes mellitus Diabetic retinopathy, nonproliferative Dyslipidemia Gastroesophageal reflux disease Hypertension Infection of left elbow Inflamed seborrheic keratosis Kidney stones Left shoulder pain Migraine headache Obesity Personal history of diabetic foot ulcer PPD positive Sepsis Skin benign neoplasm Status post partial amputation of foot Type 2 diabetes mellitus, uncontrolled Type 2 diabetes mellitus, with long-term current use of insulin Urinary tract infection Vitamin D deficiency Past Family History Family History Father CHF (congestive heart failure) Brother Colorectal cancer Other No pertinent family history Denies family history of Ovarian cancer Prostate cancer Myocardial infarction Breast cancer Past Surgical History Surgical History Amputation of right great toe History of cataract surgery History of hysterectomy History of neck surgery Social History Smoking Status: Never smoker Hx Alcohol Use: Yes Alcohol type: hard liquor alcohol intake frequency: a few times a month Hx Substance Use: No substance use type: does not use Physical Exam Vital Signs Last Vital Signs Temp 36.9 C 03/23/22 10:40 Pulse 80 03/23/22 10:40 Resp 14 03/23/22 10:40 BP 181/82 H 03/23/22 11:35 Pulse Ox 97 03/23/22 10:40 Testing Laboratory Results 03/23/22 07:02 03/23/22 07:02 PT 12.6 Seconds (9.0-12.0) H 03/21/22 12:04 INR 1.2 (0.9-1.1) H 03/21/22 12:04 APTT 27.0 Seconds (21.0-31.0) 03/21/22 12:04 Hemoglobin A1c 7.6 % (4.5-5.6) H 03/22/22 07:09 Urine Color Yellow 03/21/22 21:25 Urine Appearance Clear (Clear) 03/21/22 21:25 Urine pH 5.5 (4.5-7.5) 03/21/22 21:25 Ur Specific [place] 1.020 (1.000-1.030) 03/21/22 21:25 Urine Protein 2+ (Negative) H 03/21/22 21:25 Urine Glucose (UA) 2+ (Negative) H 03/21/22 21:25 Urine Ketones Negative (Negative) 03/21/22 21:25 Urine Nitrite Negative (Negative) 03/21/22 21:25 Ur Leukocyte Esterase 1+ (Negative) H 03/21/22 21:25 Urine WBC (Auto) 10-30 /hpf (0-5) H 03/21/22 21:25 Urine RBC (Auto) 0-4 /hpf (0-4) 03/21/22 21:25 U Hyaline Cast (Auto) 1-5 /lpf (0-5) 03/21/22 21:25 U Epithel Cells (Auto) 20-30 /lpf (0-5) H 03/21/22 21:25 Urine Bacteria (Auto) Negative (Negative) 03/21/22 21:25 03/21/22 21:25 Urine Culture - Final Urine,Clean Catch No growth - less than 1,000 colonies/mL. 03/21/22 13:13 Aerobic Blood Culture - Preliminary Blood No growth in Aerobic bottle after 24 hours. Anaerobic Blood Culture - Preliminary No growth in Anaerobic bottle after 24 hours. 03/21/22 12:04 Aerobic Blood Culture - Preliminary Blood No growth in Aerobic bottle after 24 hours. Anaerobic Blood Culture - Preliminary No growth in Anaerobic bottle after 24 hours. 03/23/22 03/23/22 11:40 05:48 POC Glucose 130 H 172 H Electrocardiogram Date: 03/21/22 Findings: + NSR @ [facility] Chest X-Ray Date: 03/21/22 Findings: + NAD
[2022-03-23] MEDS: INSULIN GLARGINE SOLOSTAR 100 UNITS/ML 3 ML PEN SC SCH ×2 (12:15→21:53)
--- NOTE | 2022-03-23 14:26 | Hospitalist Progress Note ---
Date of Service March 23, 2022 Assessment & Plan (1) Sepsis: Plan: - resolving Continue antibiotics Monitor CRP (2) Osteomyelitis: Plan: Necrotic wound of left big toe, with osteomyelitis as seen on MRI Will monitor blood cultures continue empiric vancomycin Appreciate Orto recs Also consult ID (3) Infection of great toe: Plan: - As above, plan is for OR today (4) Elevated troponin: Plan: - Most likely secondary to sepsis (5) Hypomagnesemia: Plan: replace (6) Dyslipidemia: Plan: - Continue rosuvastatin 5 mg twice weekly. (7) Type 2 diabetes mellitus, uncontrolled: Plan: - Home regimen includes metformin 500 mg daily as well as NPH/regular insuli, reportedly takes 45 units with breakfast and 40 - 45 units with lunch and dinner. - Hold home meds and convert to basal insulin with accuchecks/SSI achs. - HgbA1c in AM. - CC diet. (8) Chronic kidney disease: Plan: - Cr 1.29, GFR 42.5, at baseline. - Avoid nephrotoxic agents, renally dose medications as able. (9) Hypertension: Plan: - Continue losartan-100 mg/HCTZ-25 mg daily. (10) Gastroesophageal reflux disease: Plan: - Continue PPI. (11) Migraine headache: Plan: - Continue sumatriptan 6 mg as needed. Plan: - Admit to med/tele. - SCDs, Lovenox for DVT ppx. - Full Code. Admission and Anticipated Discharge Date Admission Date: March 21, 2022 Subjective patient seen and examined, getting ready for OR Review of Systems Review of Systems: All systems reviewed are negative, apart from the ones contained in the history. Physical Exam Physical Exam: The patient is awake, alert and oriented 3, well developed and well nourished, normocephalic and atraumatic, lying in bed and in no acute distress. HEENT--PERRL, EOMI, mucous membranes and oropharynx mildly dry Neck--supple. No JVD. No bruits. Thyroid normal, trachea midline, no tiffanie nopathy. Heart--normal S1 and S2. No murmurs, rubs or gallops. Lungs--clear bilaterally, no respiratory distress, no accessory muscle use. Abdomen--normal bowel sounds and soft. Mild epigastric and left sided abdominal pain Extremities--left big toe dry gangrene, LLE cellulitis Dermatologic--normal skin turgor, normal color, no abnormal lymph nodes, no rash. Neurologic--cranial nerves II through XII grossly intact. Rheumatologic--normal range of motion. Psychiatric--normal affect. Results & Data Results & Data ([facility]) Vital Signs (Past 12 Hours) Vital Signs Temp Pulse Pulse Resp BP Pulse Ox 03/23/22 11:35 181/82 H 03/23/22 10:40 98.4 F 80 14 97 03/23/22 07:00 98.2 F 70 18 161/74 H 96 03/23/22 06:19 72 03/23/22 03:56 97.9 F 74 18 146/65 H 96 PG Care Time/CCT Total # of Minutes Spent Total Time Spent with Patient: Total time spent is greater than 50% in coordination of care (as documented) at patient's floor/unit and/or counseling patient: Coding Level of Care Code 09595 Subseq Hosp Care Lvl 2 Diagnoses Sepsis A41.9 Sepsis type: sepsis due to unspecified organism Sepsis acute organ dysfunction status: without acute organ dysfunction Osteomyelitis M86.9 Infection of great toe L08.9 Elevated troponin R77.8 Hypomagnesemia E83.42 Dyslipidemia E78.5 Type 2 diabetes mellitus, uncontrolled E11.65 Chronic kidney disease N18.9 Hypertension I10 Gastroesophageal reflux disease K21.9 Migraine headache G43.909 Time Spent (min) 35 (1) Sepsis Sepsis type: sepsis due to unspecified organism Sepsis acute organ dysfunction status: without acute organ dysfunction Qualified Code(s): A41.9 - Sepsis, unspecified organism
--- NOTE | 2022-03-23 18:11 | History & Physical Bridge Note ---
Date of Service March 23, 2022 History & Physical Bridge Note I have examined the patient, reviewed the History & Physical and in the interval since the performance of the History & Physical I have noted the following changes of clinical significance: Will require left great toe amputation distal phalanx and removal second toe nail plate with matrixectomy and debridement second toe.
[2022-03-23] MEDS ORDERED: ePHEDrine sulfate 50 MG/ML AMP IV PRN (18:25)
[2022-03-23] MEDS ORDERED: ONDANSETRON INJ 2 MG/ML 2 ML VIAL IV PRN (18:25)
[2022-03-23] MEDS ORDERED: ATROPINE SULFATE 0.1 MG/ML 10ML SYR IV PRN (18:25)
[2022-03-23] MEDS ORDERED: fentaNYL citrate 100 MCG/2 ML VIAL IV PRN (18:25)
[2022-03-23] MEDS ORDERED: BUPIVACAINE 0.5 % 5 MG/1 ML MPF 30ML VIAL INFIL ONE (19:09)
--- NOTE | 2022-03-23 19:39 | Anesthesiology Progress Note ---
Date of Service March 23, 2022 Anesthesia Post Procedure Vital Signs Vital Signs: Temp Pulse Pulse Pulse Resp BP BP 03/23/22 19:35 75 19 168/96 H 03/23/22 19:25 79 20 179/99 H 03/23/22 19:16 97.3 F L 77 12 167/78 H 03/23/22 16:36 98.2 F 84 18 190/88 H 03/23/22 14:28 78 03/23/22 14:23 97.5 F L 76 20 211/89 H 03/23/22 11:35 181/82 H 03/23/22 10:40 98.4 F 80 14 03/23/22 07:00 98.2 F 70 18 161/74 H 03/23/22 06:19 72 03/23/22 03:56 97.9 F 74 18 146/65 H 03/23/22 00:43 67 03/22/22 23:08 98.1 F 72 18 144/76 H Pulse Ox 03/23/22 19:35 99 03/23/22 19:25 98 03/23/22 19:16 99 03/23/22 16:36 96 03/23/22 14:28 03/23/22 14:23 97 03/23/22 11:35 03/23/22 10:40 97 03/23/22 07:00 96 03/23/22 06:19 03/23/22 03:56 96 03/23/22 00:43 03/22/22 23:08 99 Pain Intensity Lumbar: Pain Intensity: 8 Bilateral Head: Pain Intensity: 2 Left Hager: Pain Intensity: 4 Transfer of Care Handoff Completed per policy Notes Mental Status: alert / awake / arousable and participated in evaluation Patient Amnestic to Procedure: Yes Nausea / Vomiting: adequately controlled Pain: adequately controlled Airway Patency, RR, SpO2: stable & adequate BP & HR: stable & adequate Hydration State: stable & adequate Anesthetic Complications: no major complications apparent and Pt Satisfied with anesthetic care
--- NOTE | 2022-03-23 19:44 | Post Operative Brief Note ---
Immediate Post Op Note v1 Date of Surgery March 23, 2022 Pre & Post Diagnosis Operation Date: 03/23/22 07:00 Pre-Op Diagnosis: Osteomyelitis distal phalanx right great toe, ulcer distal second toe, fungal nail dystrophy second toe Post-Op Diagnosis: Osteomyelitis distal phalanx right great toe, ulcer distal second toe, fungal nail dystrophy second toe I identified the patient and participated in the time-out.: Yes Procedure Operation Date: 03/23/22 07:00 Actual Procedures p Amputation of distal phalanx Right Great toe. Removal of nail plate right second toe. Matrixectomy right second toe. Debridement of Right second toe medial and lateral nail folds - Pierce Stone DO Surgeon Pierce Stone DO Cutter Operator Brick None Estimated Blood Loss 1 Findings Consistent with Post-Op Diagnosis Specimens Amputated bone and tissue distal phalanx right great toe Anesthesia Type MAC Regional Complications none Disposition Accompanied Patient To Recovery: Yes
--- NOTE | 2022-03-23 21:20 | Anesthesiology Progress Note ---
Date of Service March 23, 2022 Anesthesia Post Procedure Vital Signs Vital Signs: Temp Pulse Pulse Pulse Resp BP BP 03/23/22 20:30 98.2 F 74 16 187/81 H 03/23/22 19:55 68 15 170/69 H 03/23/22 19:45 98.1 F 72 15 173/79 H 03/23/22 19:35 75 19 168/96 H 03/23/22 19:25 79 20 179/99 H 03/23/22 19:16 97.3 F L 77 12 167/78 H 03/23/22 16:36 98.2 F 84 18 190/88 H 03/23/22 14:28 78 03/23/22 14:23 97.5 F L 76 20 211/89 H 03/23/22 11:35 181/82 H 03/23/22 10:40 98.4 F 80 14 03/23/22 07:00 98.2 F 70 18 161/74 H 03/23/22 06:19 72 03/23/22 03:56 97.9 F 74 18 146/65 H 03/23/22 00:43 67 03/22/22 23:08 98.1 F 72 18 144/76 H Pulse Ox 03/23/22 20:30 97 03/23/22 19:55 94 03/23/22 19:45 96 03/23/22 19:35 99 03/23/22 19:25 98 03/23/22 19:16 99 03/23/22 16:36 96 03/23/22 14:28 03/23/22 14:23 97 03/23/22 11:35 03/23/22 10:40 97 03/23/22 07:00 96 03/23/22 06:19 03/23/22 03:56 96 03/23/22 00:43 03/22/22 23:08 99 Pain Intensity Lumbar: Pain Intensity: 8 Bilateral Head: Pain Intensity: 2 Left Hager: Pain Intensity: 3 Transfer of Care Handoff Completed per policy Notes Mental Status: alert / awake / arousable and participated in evaluation Patient Amnestic to Procedure: Yes Nausea / Vomiting: adequately controlled Pain: adequately controlled Airway Patency, RR, SpO2: stable & adequate BP & HR: stable & adequate Hydration State: stable & adequate Anesthetic Complications: no major complications apparent and Pt Satisfied with anesthetic care
[2022-03-23] MEDS ORDERED: HYDROmorphone INJ 0.5 MG/0.5 ML SYR IV PRN (21:38)
[2022-03-24] MEDS: VANCOMYCIN HCL 750 MG in SODIUM CHLORIDE 0.9% 250 ML IV SCH (00:46)
--- NOTE | 2022-03-24 05:30 | Operative Report (OR) ---
DATE OF PROCEDURE: 03/23/2022. PREOPERATIVE DIAGNOSES: 1. Osteomyelitis of the distal phalanx of the left great toe. 2. Ulceration of the distal second toe medial and lateral nail folds. 3. 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 POSTOPERATIVE DIAGNOSES: 1. Osteomyelitis of the distal phalanx of the left great toe. 2. Ulceration of the distal second toe medial and lateral nail folds. 3. 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 PROCEDURE: 1. Amputation of distal phalanx of the left great toe. 2. Removal of nail plate, left second toe. 3. Matrixectomy of the left second toe. 4. Debridement of left second toe, medial and lateral nail fold ulcerations. SURGEON: Pierce Stone, BOARDER MACHINE: None. ANESTHESIA: MAC regional. SPECIMENS: Bone and tissue, amputated distal phalanx, left great toe. COMPLICATIONS: None. DRAINS: None. BLOOD LOSS: 1 mL. PERTINENT HISTORY: This is a 66-year-old female who had presented to the emergency department with i nfection of the left great toe. Approximately a week prior to admission, she noted that her left gre at toenail had fallen off. She started noting redness and discharge coming from the toe. She has a history of streaking up her leg and she reported fevers. Her PCP started her on amoxicillin; however , she was unable to tolerate and stopped taking it. The patient was admitted to the hospitalist [facility], placed on IV antibiotics. Orthopedics was consulted. She had an MRI, which noted osteomyelitis of the distal phalanx of the left great toe and she was then also noted to have fungal nail dystroph y of the second toe with ulceration of the medial and lateral nail folds of the second toe. The ravi ent was scheduled for surgery as indicated. All potential risks, benefits, complications, alternatives, rehab potential for incomplete relief of symptoms, need for further surgery, DVT, PE, , persistent pain, swelling, scarring, weakness, ne urovascular injury, wound complications, need for further amputation were discussed with the patient. The patient decided to proceed with the procedure as indicated. DESCRIPTION OF PROCEDURE: The patient was taken to the operative suite and placed supine on the oper ating room table. After review of consent and identification of proper site, the patient was sedated and left lower extremity was then elevated and partially exsanguinated with an Esmarch bandage, and an Esmarch bandage was applied over sterile surgical towel at the level of the ankle for tourniquet. The pneumatic tourniquet was not used during the case. Next, after surgical timeout was performed, the first and second toes of the left foot were then inje cted with approximately 20 mL of 0.5% Marcaine plain. After regional anesthetic was established, a 1 5-blade scalpel was then used to make an incision across the dorsum of the left great toe just distal to the interphalangeal joint and then medial and lateral incisions were made along the midlateral li ne extending distally. Next, the joint capsule of the interphalangeal joint was then entered with a 15-blade scalpel. The collateral ligaments were sacrificed as well as the plantar plate. Next, towe l clip was used to grasp the infected distal phalanx and this was then sharply excised and passed off as a specimen. Next, the tissue flap was then debrided and formed for a low tension closure. There was noted to be erosions on the medial and lateral condyles of the proximal phalanx, these were resected using a mark eur. After debridement of the tissue flap, the site was then irrigated with sterile saline with Ance f. Next, attention was directed toward the second toe. A mosquito hemostat was then used to undermine t he fungal infected nail plate and this was then elevated both medial and lateral and then the nail pl ate was then removed without difficulty. The nail folds were noted to have ulceration of the medial and lateral nail folds, these were debrided with a rongeur and a 15-blade scalpel. Next, a matrixect ginette was then performed with a rongeur and the first and second toes were then copiously irrigated wit h approximately 1 liter of sterile saline with Ancef. Next, top gloves were changed and 3-0 Vicryl w as then used to close the dermal layer of the great toe and then the skin was then closed using 3-0 n ylon. A sterile compressive dressing was applied consisting of Xeroform gauze, sterile 4 x 4s, ABD o shannon the heel and then cast padding, and an Daniel wrap. This was then followed by application of a post operative shoe. The tourniquet was released. The patient was awakened and taken to recovery in stab le condition. Job ID: [id number]
[2022-03-24] MEDS: ACETAMINOPHEN 325 MG TAB PO PRN ×3 (05:42→20:16)
[2022-03-24] MEDS: INSULIN ASPART PER UNIT SC SCH ×5 (06:43→20:14)
[2022-03-24 07:59] LABS: C Reactive Protein 8.28 mg/dl (0-0.5); Est GFR (African American) 93.4 ml/min; Est GFR (Non-African American) 80.6 ml/min
--- NOTE | 2022-03-24 08:57 | Pharmacy Report ---
Pharmacy Vanc AUC Short Note - Date of Service March 24, 2022 - Assessment & Plan Assessment 66 year old F receiving vancomycin for osteo of L toe. Now s/p amputation of toe and debridement. ID consulted to provide recommendations. Urine/blood cultures are no growth thus far. Plan Vancomycin * AUC/DOMO is the preferred PK/PD target for vancomycin * AUC guided dosing is effective and associated with decreased risk of nephrotoxicity compared to traditional trough targets * Random vancomycin level this AM was ~11.7 mcg/ml - this was drawn about 8 hrs after morning dose given * Plan to increased vancomycin to 1250 mg iv q 12 hrs. This dosing is estimated to target trough ~12 mcg/ml and produce an AUC/DOMO of 400-600 and may be associated with a 7 % risk of nephrotoxicity * Will order repeat level in next 24-48 hrs to ensure stable if plan is for ongoing therapy Pharmacy will continue to follow and will adjust dose/frequency as necessary. Thank you.
[2022-03-24] MEDS: CHOLECALCIFEROL 1,000 UNITS 25 MCG TAB PO SCH (09:03)
[2022-03-24] MEDS: LOSARTAN/HCTZ 50/12.5MG TAB PO SCH (09:03)
[2022-03-24] MEDS: PANTOprazole 40 MG TAB PO SCH (09:03)
[2022-03-24] MEDS: INSULIN GLARGINE SOLOSTAR 100 UNITS/ML 3 ML PEN SC SCH ×2 (09:04→20:15)
[2022-03-24] MEDS: VANCOMYCIN HCL 1,250 MG in SODIUM CHLORIDE 0.9% 250 ML IV SCH ×2 (09:41→20:26)
--- NOTE | 2022-03-24 10:42 | Orthopedic Progress Note ---
Date of Service March 24, 2022 Assessment & Plan (1) Osteomyelitis: Plan: Postop day 1 status post amputation right great toe; second right toenail removal. PT OT protocols. Weightbearing on the heel only. Plan for dressing change tomorrow. Okay to resume enoxaparin this evening. Admission and Anticipated Discharge Date Admission Date: March 21, 2022 Subjective Postop day 1 Patient sitting up in bed awake and alert. No complaints this morning. Pain is controlled. Denies shortness of breath, chest pain, lightheadedness. Physical Exam Physical Exam: Dressings are clean, dry, and intact. Results & Data ([facility]) Vital Signs (Past 12 Hours) Vital Signs Temp Pulse Pulse Resp BP BP Pulse Ox 03/24/22 07:47 36.6 C 72 20 178/82 H 96 03/24/22 07:12 78 03/24/22 03:05 36.8 C 74 18 165/68 H 97 03/23/22 23:14 36.8 C 72 18 169/69 H 97
--- NOTE | 2022-03-24 12:07 | Hospitalist Progress Note ---
Date of Service March 24, 2022 Assessment & Plan (1) Sepsis: Plan: - resolving Continue antibiotics Monitor CRP (2) Osteomyelitis: Plan: Necrotic wound of left big toe, with osteomyelitis as seen on MRI status post left big toe amputation and 2nd left toe nail bed debridement continue empiric vancomycin Await cultures from surgical specimen Appreciate Hilton bennett Also consult ID (3) Infection of great toe: Plan: - As above, continue wound dressing (4) Elevated troponin: Plan: - Most likely secondary to sepsis (5) Hypomagnesemia: Plan: replace (6) Dyslipidemia: Plan: - Continue rosuvastatin 5 mg twice weekly. (7) Type 2 diabetes mellitus, uncontrolled: Plan: - Home regimen includes metformin 500 mg daily as well as NPH/regular insuli, reportedly takes 45 units with breakfast and 40 - 45 units with lunch and dinner. - Hold home meds and convert to basal insulin with accuchecks/SSI achs. - HgbA1c in AM. - CC diet. (8) Chronic kidney disease: Plan: - Cr close to baseline. - Avoid nephrotoxic agents, renally dose medications as able. (9) Hypertension: Plan: - Continue losartan-100 mg/HCTZ-25 mg daily. (10) Gastroesophageal reflux disease: Plan: - Continue PPI. (11) Migraine headache: Plan: - Continue sumatriptan 6 mg as needed. Plan: - Hopefully d/c in the next 24-48 hrs - SCDs, Lovenox for DVT ppx. - Full Code. Admission and Anticipated Discharge Date Admission Date: March 21, 2022 Subjective patient seen and examined, feels ok following surgery Review of Systems Review of Systems: All systems reviewed are negative, apart from the ones contained in the history. Physical Exam Physical Exam: The patient is awake, alert and oriented 3, well developed and well nourished, normocephalic and atraumatic, lying in bed and in no acute distress. HEENT--PERRL, EOMI, mucous membranes and oropharynx mildly dry Neck--supple. No JVD. No bruits. Thyroid normal, trachea midline, no adenopathy. Heart--normal S1 and S2. No murmurs, rubs or gallops. Lungs--clear bilaterally, no respiratory distress, no accessory muscle use. Abdomen--normal bowel sounds and soft. Mild epigastric and left sided abdominal pain Extremities--left leg on unna boot Dermatologic--normal skin turgor, normal color, no abnormal lymph nodes, no rash. Neurologic--cranial nerves II through XII grossly intact. Rheumatologic--normal range of motion. Psychiatric--normal affect. Results & Data Results & Data ([facility]) Vital Signs (Past 12 Hours) Vital Signs Temp Pulse Pulse Resp BP BP Pulse Ox 03/24/22 11:02 98.1 F 82 14 146/68 H 95 03/24/22 07:47 97.9 F 72 20 178/82 H 96 03/24/22 07:12 78 03/24/22 03:05 98.2 F 74 18 165/68 H 97 PG Care Time/CCT Total # of Minutes Spent Total Time Spent with Patient: Total time spent is greater than 50% in coordination of care (as documented) at patient's floor/unit and/or counseling patient: Coding Level of Care Code 62057 Subseq Hosp Care Lvl 2 Diagnoses Sepsis A41.9 Sepsis type: sepsis due to unspecified organism Sepsis acute organ dysfunction status: without acute organ dysfunction Osteomyelitis M86.9 Infection of great toe L08.9 Elevated troponin R77.8 Hypomagnesemia E83.42 Dyslipidemia E78.5 Type 2 diabetes mellitus, uncontrolled E11.65 Chronic kidney disease N18.9 Hypertension I10 Gastroesophageal reflux disease K21.9 Migraine headache G43.909 Time Spent (min) 35 (1) Sepsis Sepsis type: sepsis due to unspecified organism Sepsis acute organ dysfunction status: without acute organ dysfunction Qualified Code(s): A41.9 - Sepsis, unspecified organism
[2022-03-24] MEDS: SUMAtriptan succinate 6 MG/0.5 ML VIAL SQ PRN (16:25)
[2022-03-24] MEDS: oxyCODONE HCL IR 5 MG TAB (IMMEDIATE RELEASE) PO PRN (23:07)
[2022-03-25] MEDS: ACETAMINOPHEN 325 MG TAB PO PRN ×2 (06:05→11:59)
[2022-03-25 08:34] LABS: BUN Creatinine Ratio 15.5 (10-20); C Reactive Protein 7.94 mg/dl (0-0.5); Calcium 9.1 mg/dl (8.5-10.1); Creatinine Clr Calc Pharmacy 83.3 ml/min; Est GFR (African American) 82.8 ml/min; Est GFR (Non-African American) 71.4 ml/min; Potassium 3.5 mmol/L (3.5-5.1)
[2022-03-25] MEDS: PANTOprazole 40 MG TAB PO SCH (09:24)
[2022-03-25] MEDS: oxyCODONE HCL IR 5 MG TAB (IMMEDIATE RELEASE) PO PRN (09:24)
[2022-03-25] MEDS: LOSARTAN/HCTZ 50/12.5MG TAB PO SCH (09:25)
[2022-03-25] MEDS: CHOLECALCIFEROL 1,000 UNITS 25 MCG TAB PO SCH (09:25)
[2022-03-25] MEDS: VANCOMYCIN HCL 1,250 MG in SODIUM CHLORIDE 0.9% 250 ML IV SCH (09:26)
[2022-03-25] MEDS: INSULIN GLARGINE SOLOSTAR 100 UNITS/ML 3 ML PEN SC SCH (09:34)
[2022-03-25] MEDS: INSULIN ASPART PER UNIT SC SCH ×2 (09:34→12:53)
[2022-03-25] MEDS ORDERED: hydrALAZINE HCL 20 MG/ML VIAL IV STA (11:44)
--- NOTE | 2022-03-25 11:56 | Discharge Summary ---
Date of Service March 25, 2022 Admission HPI Per Admitting Provider Mrs. Rucker is a 66-year-old female with past medical history of IDDM2 with peripheral neuropathy and diabetic retinopathy, CKD3, dyslipidemia, hypertension, GERD, and migraine headaches who presents today from home due to increasing erythema and edema of her left foot. Patient states back in late January, she clipped a piece of skin off of her left great toe, and several days later it began to appear infected. She called her PCP who prescribed her Augmentin for 10 days. It initially appeared to be getting better, until Monday when the toenail fell off the toe. Ever since then, it has become increasingly red, swollen, and painful to touch. The swelling has extended up to her left calf. She is also noticed some fever and chills at home. Otherwise, without chest pain, palpitations, shortness of breath, abdominal pain, nausea, vomiting, dysuria, hematuria, diarrhea, or constipation. In ED, she is hypertensive 148/128, HR 97, temp 102.5, SPO2 >95% on room air. Labs significant for WBC 17.65, creatinine 1.29, glucose 278, magnesium 1.3, HS troponin 82.3. Chest x-ray without evidence of cardiopulmonary disease. Foot x-ray showed small focal skin ulceration and soft tissue swelling within the left first toe, however no evidence for osteomyelitis. Principal Diagnosis left foot osteomyelitis Discharge Exam The patient is awake, alert and oriented 3, well developed and well nourished, normocephalic and atraumatic, lying in bed and in no acute distress. HEENT--PERRL, EOMI, mucous membranes and oropharynx mildly dry Neck--supple. No JVD. No bruits. Thyroid normal, trachea midline, no adenopathy. Heart--normal S1 and S2. No murmurs, rubs or gallops. Lungs--clear bilaterally, no respiratory distress, no accessory muscle use. Abdomen--normal bowel sounds and soft. Mild epigastric and left sided abdominal pain Extremities--left leg on unna boot Dermatologic--normal skin turgor, normal color, no abnormal lymph nodes, no rash. Neurologic--cranial nerves II through XII grossly intact. Rheumatologic--normal range of motion. Psychiatric--normal affect. Discharge Data Allergies Allergy/AdvReac Type Severity Reaction Status Date / Time amoxicillin [From Augmentin] AdvReac Intermediate Diarrhea Verified 03/21/22 15:11 clavulanic acid AdvReac Intermediate Diarrhea Verified 03/21/22 15:11 [From Augmentin] Consultations 03/21/22 14:07 ED Decision to Admit Stat 03/21/22 19:07 Consult Orthopedic Surgery Routine 03/22/22 11:13 Consult Infectious Diseases Routine Procedures Performed Operation Date: 03/23/22 07:00 Actual Procedures s Debridement of Right second toe(Left) - Pierce Stone DO s Removal of nail plate second Right toe.(Left) - Pierce Stone DO p Amputation of Right Great toe. Matrixectomy. (Left) - Pierce Stone DO Ordered Studies 03/21/22 15:31 MR foot LT wo/w con Stat Hospital Course (1) Sepsis: Resolved (2) Osteomyelitis: Necrotic wound of left big toe, with osteomyelitis as seen on MRI status post left big toe amputation and 2nd left toe nail bed debridement Discharge on PO Cephalexin 500mg QID and Cipro 750mg BID for 14 days Appreciate Orto and ID recs (3) Infection of great toe: - As above, continue wound dressing (4) Elevated troponin: - Most likely secondary to sepsis (5) Hypomagnesemia: replace (6) Dyslipidemia: - Continue rosuvastatin 5 mg twice weekly. (7) Type 2 diabetes mellitus, uncontrolled: - Home regimen includes metformin 500 mg daily as well as NPH/regular insuli, reportedly takes 45 units with breakfast and 40 - 45 units with lunch and dinner. - Hold home meds and convert to basal insulin with accuchecks/SSI achs. - HgbA1c in AM. - CC diet. (8) Chronic kidney disease: - Cr close to baseline. - Avoid nephrotoxic agents, renally dose medications as able. (9) Hypertension: - Continue losartan-100 mg/HCTZ-25 mg daily. (10) Gastroesophageal reflux disease: - Continue PPI. (11) Migraine headache: - Continue sumatriptan 6 mg as needed. - D/C home with home health - SCDs, Lovenox for DVT ppx. - Full Code. Total Time Total Time Spent Total Time Spent (In Minutes): 35 Discharge Plan Discharge Items Patient Disposition: Home - Home Health Services Reason For Visit: LEFT FOOT INFECTION Discharge Diagnosis: left foot infection Activity: Resume your previous activity Non-emergency contact: Primary Care Provider Call non-emergency contact if: you have any medication questions Follow-up/Referrals: Grey Bess MD [Primary Care Provider] - Diet: Regular Addtl Attending Provider Instructions: please continue wound care with home health Pending Studies at Discharge: No Stand-Alone Forms: My [facility] [email or web address], Smoking Cessation Medications and DC Order Prescriptions: New cephalexin 500 mg tablet 500 mg PO QID 14 Days Qty: 56 RF: 0 ciprofloxacin HCl 750 mg tablet 750 mg PO BID 14 Days Qty: 28 RF: 0 Continued (DME) pen needle, diabetic [BD Ultra-Fine Mini Pen Needle] 31 gauge x 3/16" needle See Rx Instructions .ROUTE .MEDSUPPLY Qty: 200 RF: 3 (DME) lancets [OneTouch Delica Lancets] 33 gauge misc See Rx Instructions .ROUTE .MEDSUPPLY Qty: 100 RF: 6 (DME) OneTouch Verio test strips Strip See Rx Instructions .ROUTE .MEDSUPPLY Qty: 50 RF: 0 cholecalciferol (vitamin D3) 2,000 unit tablet 2,000 unit PO DAILY RF: 0 (DME) OneTouch Verio test strips Strip See Dose Instructions .ROUTE .MEDSUPPLY Qty: 400 RF: 3 Novolin 70-30 FlexPen U-100 100 unit/mL (70-30) insulin pen 30 - 45 unit SQ TIDM Qty: 105 RF: 3 losartan-hydrochlorothiazide 100-25 mg tablet 1 tab PO DAILY Qty: 90 RF: 3 metformin 500 mg tablet extended release 24hr 500 mg PO DAILY Qty: 90 RF: 1 omeprazole 20 mg capsule,delayed release(DR/EC) 20 mg PO DAILY Qty: 90 RF: 3 sumatriptan succinate [Imitrex STATdose Refill] 6 mg/0.5 mL cartridge 6 mg SQ .COMPLEX PRN (Reason: Migraine Headache) RF: 0 rosuvastatin 5 mg tablet 5 mg PO 2XWK RF: 0 Discharge Orders: Discharge Order (Routine); Ordered 03/25/22 Ordered By: Ksenia Garcia Admission Data Admit Date/Time: 03/21/22 14:32 Attending Provider: Ksenia Garcia Admit Provider: Tian Cardozo Primary Care Provider: Grey Bess Other Providers: Tian Cardozo ; Pierce Stone ; Fox Scott ; Tatianna Avila ; Pio Judge I. ; Flo Garza II ; Lin Matson ; Jeremías Poole ; Antonio Valdes Coding Level of Care Code D/C DAY MANAGEMENT >30 MINS Diagnoses Sepsis A41.9 Sepsis type: sepsis due to unspecified organism Sepsis acute organ dysfunction status: without acute organ dysfunction Osteomyelitis M86.9 Infection of great toe L08.9 Elevated troponin R77.8 Hypomagnesemia E83.42 Dyslipidemia E78.5 Type 2 diabetes mellitus, uncontrolled E11.65 Chronic kidney disease N18.9 Hypertension I10 Gastroesophageal reflux disease K21.9 Migraine headache G43.909 Time Spent (min) 35
--- NOTE | 2022-03-25 12:14 | Orthopedic Progress Note ---
Date of Service March 25, 2022 Assessment & Plan (1) Osteomyelitis: Plan: Postop day 2 status post amputation right great toe; second right toenail removal. PT OT protocols. Weightbearing on the heel only. Daily dressing changes Admission and Anticipated Discharge Date Admission Date: March 21, 2022 Subjective POD 1 Pt sitting up in chair at bedside. No complaints. Eating lunch. Pain controlled. Physical Exam Physical Exam: Dressing removed. Suture line intact. Minimal erythema. Mild bloody drainage noted on dressing. No purulence. 2nd toe benign. Wounds redressed. Results & Data ([facility]) Vital Signs (Past 12 Hours) Vital Signs Temp Pulse Pulse Resp BP Pulse Ox 03/25/22 11:15 36.8 C 73 18 181/85 H 95 03/25/22 08:06 37.0 C 68 18 166/79 H 95 03/25/22 07:52 69 03/25/22 02:34 36.9 C 67 20 155/77 H 95
[2022-03-25] MEDS ORDERED: VANCOMYCIN TROUGH ONE (20:30)
== END 2022-03-25 14:15 | disposition home or self-care (01) | DRG 854 ==
LOC: ED 11:20 → SUATTDRO 14:32 → 2N 14:32